=== PATIENT | female | born 1965 | race Caucasian/White ===

== ENCOUNTER 2024-02-05 19:40 | Inpatient (IN) | payer MEDICARE, BC, SELFPAY ==
[2024-02-05] VITALS (9 sets, daily range): BP systolic 102–176; BP diastolic 45–76; PULSE 90–128; RESP 9–20; TEMP 37.2; O2SAT 95–100
--- NOTE | ~2024-02-05 | CT_ITS ---
CT brain wo con Ordering provider: Jeet Webber MD History: 58 years Female with . Anoxic Brain Injury . Comparison: February 05, 2024 Technique: CT of the head without contrast. Radiation reduction technique utilized. DLP is 281.66 mGy. FINDINGS: BRAIN PARENCHYMA AND CSF SPACES: No midline shift, mass effect or hemorrhage. The brain parenchyma a nd CSF spaces are otherwise normal. Empty sella turcica. VISUALIZED PARANASAL SINUSES: Well aerated. MASTOIDS: Well aerated. BONES: The bones appear intact. SOFT TISSUES: Visualized nasopharynx is normal. Superficial soft tissues are normal. IMPRESSION: No acute intracranial findings. Reviewed, dictated and finalized at location A.
--- NOTE | ~2024-02-05 | XR_ITS ---
EXAMINATION: XR chest 1V portable DATE: 02/06/2024 07:51 INDICATION: Cardiac arrest. TECHNIQUE: A single frontal view of the chest was obtained. COMPARISON: Chest single view 02/05/2024, chest CT 02/05/2024 FINDINGS: There are patchy airspace opacities involving all lung zones with a lower lung predominance . No pleural effusion or pneumothorax. Cardiomegaly is noted. The endotracheal tube tip is 3.1 cm abo ve the nik. There are changes of posterior fusion procedure in cervical thoracic spine. A right in ternal jugular central venous catheter is seen with tip at the superior cavoatrial junction. IMPRESSION: 1. Diffuse lung disease with worsening at left lung base, consistent with pneumonia. 2. Cardiomegaly. Reviewed, dictated and finalized at location E. IMPRESSION: 1. Diffuse lung disease with worsening at left lung base, consistent with pneum onia. 2. Cardiomegaly.
--- NOTE | ~2024-02-05 | XR_ITS ---
EXAMINATION: XR chest ET placement Exam Date/Time: 02/05/2024 19:45 CDT HISTORY: et placement Comparison: None. RESULT: Lines, tubes, and devices: Endotracheal tube terminating 3.2 cm above the nik. Narrow caliber rig ht-sided IJ vascular catheter, somewhat lateral entry site, terminating in the right atrium. Surgical clips over the lower neck. Cervical fusion hardware. Lungs and pleura: Moderate diffuse reticular opacities. Patchy groundglass and streaky pulmonary opa cities most prominent in the lung bases. Mild bilateral costophrenic angle blunting. Cardiomediastinal silhouette: Unremarkable. Other: No acute osseous or upper abdominal finding. IMPRESSION: Endotracheal tube terminates 3.2 cm above the nik. Narrowed caliber right-sided vascular catheter, terminating over the right atrium. Moderate pulmonary edema and bibasilar atelectasis. Possible small bilateral pleural effusions. Infec tion is not excluded. Reviewed, dictated and finalized at location K. IMPRESSION: Endotracheal tube terminates 3.2 cm above the nik. Narrowed caliber right-sided vascular catheter, terminating over the right atri um. Moderate pulmonary edema and bibasilar atelectasis. Possible small bilateral pl eural effusions. Infection is not excluded.
--- NOTE | ~2024-02-05 | CT_ITS ---
EXAMINATION: CT chest abdomen pelvis wo con DATE: 02/05/2024 21:33 INDICATION: food bolus? s/p OHCA with ROSC . TECHNIQUE: Computed tomography (CT) of the chest, abdomen, and pelvis was performed with 100 mL Omnip aque-350 intravenous contrast. Automated exposure control and iterative reconstruction technique were employed. The dose-length product was 1519.13 mGy-cm. COMPARISON: X-ray chest, same date. FINDINGS: Examination limited by lack of contrast and arm down positioning. CHEST: Thoracic aorta: No significant dilation. No dissection. Lung parenchyma and airways: Septal thickening. Volume loss and segmental consolidation in the left l ower lobe. Patchy perihilar and scattered acinar opacities. Airway debris in left lower lobe bronchi. Thoracic inlet, axillae and chest wall: No thyroid or soft tissue mass. No axillary lymphadenopathy. Right IJ/subclavian central line, terminating at the cavoatrial junction. Endotracheal tube, 1.6 cm a lakhwinder the nik. Focal radiopacities project over the upper esophagus. Mediastinum: Enlarged mediastinal and hilar lymph nodes. Heart and pericardium: Mild cardiomegaly. No pericardial effusion. Coronary artery calcifications: Moderate. Pleura: No pleural effusion. Dependent right pleural calcification. Thoracic bones: No acute osseous finding in the chest. Partially visualized cervical fusion hardware. ABDOMEN/PELVIS: Liver: Normal. Biliary/Gallbladder: Gallbladder is mildly distended. Pericholecystic fluid. No stones detected. No b ile duct dilation. Pancreas: No mass or duct dilation. Spleen: Normal. Adrenals:No mass. Kidneys: Bilateral renal atrophy. No suspicious mass, obstructing stone, or hydronephrosis. GI tract: Small hiatal hernia. G-tube, in good position No small or large bowel dilation. Normal appe ndix. Mesentery/Peritoneum: No mass or free air. Small volume ascites. Retroperitoneum: No mass Atherosclerotic abdominal aortic and/or arterial calcifications. Pelvis: The urinary bladder is decompressed by Stack catheter. Absent uterus. Ovaries not confidently identified. Soft Tissues: Moderate diffuse body wall edema Abdominopelvic bones: No acute osseous finding in the abdomen/pelvis. IMPRESSION: Endotracheal tube terminates 1.6 cm above the nik, consider slight retraction. Right IJ/subclavian central line, in good position. Focal radiopacities, no larger than 7 mm, projecting over the upper thoracic esophagus, may represent swallowed foreign bodies. Aspiration pneumonitis, possible left lower lobe aspiration pneumonia, overlying changes of mild inte rstitial edema. Mild gallbladder hydrops with pericholecystic fluid, may be secondary to fasting and associated mild ascites, or obstruction and gallbladder inflammation, correlate with biliary labs. Moderate body wall edema. Reviewed, dictated and finalized at location K. IMPRESSION: Endotracheal tube terminates 1.6 cm above the nik, consider slight retractio n. Right IJ/subclavian central line, in good position. Focal radiopacities, no larger than 7 mm, projecting over the upper thoracic es ophagus, may represent swallowed foreign bodies. Aspiration pneumonitis, possible left lower lobe aspiration pneumonia, overlyin g changes of mild interstitial edema. Mild gallbladder hydrops with pericholecystic fluid, may be secondary to fastin g and associated mild ascites, or obstruction and gallbladder inflammation, cor relate with biliary labs. Moderate body wall edema.
--- NOTE | ~2024-02-05 | XR_ITS ---
Portable chest x-ray Comparison: 02/06/2024 Clinical History: Respiratory failure Findings: Endotracheal tube and right-sided central venous line remain in place. There is extensive hazy pulmonary disease. Cardiomediastinal silhouette is stable. Stable cervicothoracic spinal fixati on hardware. Impression: Extensive hazy pulmonary disease, suggestive moderate pulmonary edema. Correlate clinically for infec tion. Stable support tubes. Reviewed, dictated and finalized at [facility]. Impression: Extensive hazy pulmonary disease, suggestive moderate pulmonary edema. Correlat e clinically for infection. Stable support tubes.
--- NOTE | ~2024-02-05 | XR_ITS ---
Portable chest x-ray Comparison: 02/07/2024 Clinical History: Respiratory failure Findings: Endotracheal tube and right-sided central venous line are in satisfactory use. Extensive b ibasilar and perihilar airspace consolidation present. Probable minimal pleural effusions. Cardiomed iastinal silhouette is stable. Bones and soft tissues are unremarkable. Impression: Extensive bibasilar and perihilar airspace consolidation with minimal pleural effusions. Correlate fo r pulmonary edema versus pneumonia. Support tubes, as above. Reviewed, dictated and finalized at location . Impression: Extensive bibasilar and perihilar airspace consolidation with minimal pleural e ffusions. Correlate for pulmonary edema versus pneumonia. Support tubes, as above.
--- NOTE | ~2024-02-05 | XR_ITS ---
Portable chest x-ray Comparison: 02/08/2024 Clinical History: Respiratory failure Findings: Endotracheal tube and right-sided central venous line are in place. Small bilateral pleura l effusions are present. There is extensive bibasilar/perihilar airspace disease. Cardiomediastinal silhouette is stable. Stable cervicothoracic spinal fixation hardware. Impression: Moderate pulmonary edema pattern versus bilateral pneumonia. Correlate clinically. Support tubes, as above. Small pleural effusions. Reviewed, dictated and finalized at location . Impression: Moderate pulmonary edema pattern versus bilateral pneumonia. Correlate clinical ly. Support tubes, as above. Small pleural effusions.
--- NOTE | ~2024-02-05 | XR_ITS ---
Portable chest x-ray Comparison: 02/09/2024 Clinical History: Respiratory failure Findings: Endotracheal tube and right-sided central venous line remain in place. There is left lower lobe consolidation with a more hazy airspace disease at the right lung base and left perihilar regio n. Stable minimal pleural effusions. Cardiomediastinal silhouette is stable. Bones and soft tissues are unremarkable. Impression: Bibasilar and perihilar airspace disease persists, with most confluent consolidation at the left lowe r lobe. Correlate for pulmonary edema/atelectasis versus pneumonia. Minimal pleural effusions. Support tubes, as above. Reviewed, dictated and finalized at location . Impression: Bibasilar and perihilar airspace disease persists, with most confluent consolid ation at the left lower lobe. Correlate for pulmonary edema/atelectasis versus pneumonia. Minimal pleural effusions. Support tubes, as above.
--- NOTE | ~2024-02-05 | CT_ITS ---
EXAMINATION: CT brain wo con DATE: 02/05/2024 21:31 INDICATION: s/p cardiac arrest . TECHNIQUE: Computed tomography (CT) of the head was performed without intravenous contrast. The mA wa s adjusted according to patient size. Iterative reconstruction technique was employed. The dose-lengt h product was 605.33 mGy-cm. COMPARISON: None. FINDINGS: No acute intracranial hemorrhage or extra-axial fluid collection. No hydrocephalus, mass, or herniation. No acute large vessel ischemic infarct. Focal hypodensity in the radha, with apparent extension into t he midbrain. Unremarkable dural venous sinus attenuation. No acute osseous abnormality. The aerated spaces are clear. Bilateral lens replacements. IMPRESSION: Focal pontine and midbrain hypodensities, most likely representing artifact from beam hardening altho ugh focal infarct could appear similarly. Consider MRI of the brain for further evaluation. Reviewed, dictated and finalized at location K. IMPRESSION: Focal pontine and midbrain hypodensities, most likely representing artifact fro m beam hardening although focal infarct could appear similarly. Consider MRI of the brain for further evaluation.
--- NOTE | 2024-02-05 19:44 | PC.NURSE ---
VORB for 40mg etomidate, 100mg rocuronium
--- NOTE | 2024-02-05 19:48 | PC.NURSE ---
Pt intubated with 7.5 ETT, 23cm at the lip.
--- NOTE | 2024-02-05 19:59 | ED.CPR ---
HPI - CPR General Chief Complaint: Cardiac Arrest/CPR Stated Complaint: cardiac arrest Time Seen by Provider: 02/05/24 19:50 History of Present Illness HPI narrative: Patient has history of ESRD on dialysis, currently in shelter for rehab s/p cervical surgery when family believes that she choked on something, had a food bolus, was unable to tolerate anything by mouth and was spitting up and choking constantly, when they asked the shelter to take her to the emergency room they refused, therefore family did decide to try to take her themselves to the emergency room. On the drive over, her son noticed that she had become unresponsive, he immediately pulled over, pulled her out of the car, her granddaughter who is a nurse immediately started chest compressions as the paramedics arrived and took over and initially patient was in asystole, then pea, and upon arrival to our ambulance [place] they had a pulse. Related Data Allergies Allergy/AdvReac Type Severity Reaction Status Date / Time ceftriaxone Allergy Unknown Verified 02/05/24 20:08 clindamycin Allergy Unknown Verified 02/05/24 20:08 Review of Systems Review of Systems: ROS unobtainable: Yes unobtainable due to medical condition and unobtainable due to mental status Exam Narrative: EXAMINATION OF ORGAN SYSTEMS/BODY AREAS: Constitutional: Vital signs per nursing GENERAL: occasionally will choke/gag on [place] HEAD: Normal with no signs of head trauma. EYES: conjunctiva normal ENT: No debris in airway LUNGS: course breath sounds bilaterally with bagging HEART: tachycardic ABD: soft, G-tube in place EXT: left humeral IO in place, left upper extremity AV fistula intact SKIN: no obvious signs of trauma NEURO: no purposeful movement Course Vital Signs Vital signs: Vital Signs Pulse Rate 128 H 02/05/24 19:37 Respiratory Rate 20 02/05/24 19:37 Blood Pressure 176/76 H 02/05/24 19:37 Pulse Oximetry 100 02/05/24 19:37 Temperature 99 F 02/05/24 20:39 Pulse Rate 96 02/05/24 22:00 Respiratory Rate 18 02/05/24 22:00 Blood Pressure 109/46 L 02/05/24 22:00 Pulse Oximetry 95 02/05/24 22:00 Oxygen Delivery Mechanical Ventilation 02/05/24 20:38 Fraction of Inspired Oxygen 65 02/05/24 20:05 Procedures Intubation Intubation #1: Intubation Date: 02/05/24 Intubation Time: 23:06 sedative: Etomidate Mg Given: 40 paralytic: Rocuronium Mg Given: 100 Laryngoscope: fiber optic video scope Assist Device Used: fiber optic device Tube Size (cm): 7.5 Method of Intubation: orotracheal Number of Attempts: 1 Tube Secured Depth (cm): 23 Tube Secured Location: lips Tube Placement Confirmation: visualized tube passing through cords, equal breath sounds bilaterally, no breath sounds over epigastrium and confirmation by capnometry Patient Tolerated Procedure: well and no complications MDM - Cardiac Arrest/CPR MDM Narrative Medical decision making narrative: patient presents after at of hospital cardiac arrest, family suspects that she had choking episode at shelter with possible food bolus, and due to the granddaughter working at a nearby tertiary hospital here, tried to transfer her there themselves, unfortunately she went into cardiac arrest 20 minutes away from the hospital and thankfully there was immediate bystander CPR by the granddaughter, EMS on arrival continued CPR and by the time they arrived here she had a pulse. Patient was intubated by myself, confirmed on chest x-ray, there was resistance and difficulty passing OG-tube which I suspect is from the food bolus, labs within acceptable limits other than elevated creatinine she is already a dialysis patient. She does already have a central line in place. A CT head, chest/abdomen/ pelvis obtained, does show possible esophageal foreign bodies, antibiotics started, case discussed with inte
--- NOTE | 2024-02-05 20:06 | ECG_ITS ---
Test Date: 2024-02-05 19:41:45 Measurements Intervals [place] Rate: 130 P: 87 WA: 190 QRS: 120 QRSD: 98 T: 68 QT: 381 QTc: 561 Interpretive Statements SINUS TACHYCARDIA INCOMPLETE RIGHT BUNDLE BRANCH BLOCK DELAYED PRECORDIAL R/S TRANSITION ST-T WAVE ABNORMALITY IN INFERIOR LEADS- CONSIDER ISCHEMIA BASELINE WANDER- V4-V6 ABNORMAL ECG No previous ECG available for comparison Electronically Signed On 02-06-2024 07:42:33 CDT by Kurt Barraza D.O.
[2024-02-05] MEDS: FENTANYL 2,500MCG/NS250ML(*CRX 2,500 MCG/250 ML BAG IV CONT (20:12)
[2024-02-05 20:21] LABS: Basophils Absolute Auto 0.1 K/mm3 (0.0-0.1); Basophils Percent Auto 0.4 % (0.2-1.2); Eosinophils Percent Auto 0.2 % (0-4.4); Hematocrit 36.7 % (37.0-47.0); Immature Granulocyte Absolute 0.31 K/mm3 (0.00-0.031); Immature Granulocyte Percent A 1.8 % (0-0.5); Lymphocytes Absolute Auto 2.74 K/mm3 (0.9-3.2); Mean Corpuscular Hemoglobin 30.8 pg (26-34); Mean Corpuscular Volume 102.8 fl (80-100); Mean Platelet Volume 12.2 fl (7.4-10.4); Monocytes Percent Auto 6.1 % (2.6-8.5); Neutrophils Absolute Auto 12.9 K/mm3 (1.3-6.7); Neutrophils Percent Auto 75.5 % (45.5-73.1); Nucleated Red Blood Cells Perc 0.1 % (0.0-0.2); Platelet Count Result 109 k/mm3 (150-375); Red Blood Count 3.57 M/mm3 (4.2-5.4); Red Cell Distribution Width 16.5 % (11.5-14.5); White Blood Count 17.1 K/mm3 (4.5-10.0)
[2024-02-05 20:32] LABS: INR 1.2; Prothrombin Time 16.2 Seconds (11.1-14.7)
[2024-02-05 20:33] LABS: Alanine Aminotransferase 16 U/L (6-35); Albumin Level 3.3 g/dL (3.5-5.1); Alkaline Phosphatase 260 U/L (38-126); Anion Gap 13 mmol/L (4-12); Aspartate Amino Transferase 44 U/L (14-36); Bilirubin,Total 1.3 mg/dL (0.2-1.3); Blood Urea Nitrogen 19 mg/dL (7-17); Calcium 10.2 mg/dL (8.4-10.2); Carbon Dioxide 25 mmol/L (22-30); Chloride 95 mmol/L (98-107); Estimated Glomerular Filt Rate 17; Glucose 116 mg/dL (65-110); Partial Thromboplastin Time 38.8 Seconds (22.3-36.8); Potassium 3.5 mmol/L (3.4-5.0); Sodium 133 mmol/L (137-145)
[2024-02-05 20:35] LABS: Lactic Acid Reflex 7.3 mmol/L (0.7-2.0)
[2024-02-05 20:44] LABS: Troponin I 0.021 ng/mL (0.000-0.034)
[2024-02-05 20:47] LABS: Alveolar/Arterial O2 Gradient 319.2 mmHg; Base Excess ABG -3.6 mEq/l (+/-2.0); Fractional Inspired Oxygen 65 %; HCO3 ABG 25.2 mEq/l (22.0-26.0); Oxygen Content ABG 15.3 %vol (16.0-22.0); Oxygen Saturation ABG 91.5 % (95.0-100.0); Oxyhemoglobin 90.5 % THb (90.0-100.0); PO2 ABG 74.5 mmHg (80.0-100.0); PO2 FiO2 Ratio Arterial Blood 1.15 %
[2024-02-05 20:49] LABS: PCO2 ABG 64.1 mmHg (35.0-45.0); pH ABG 7.212 (7.350-7.450)
[2024-02-05 20:50] LABS: Arterial Blood Gas PEEP 5 cmH2O; Arterial Blood Gas Tidal Volume 350 ml; Arterial Blood Gas Vent Mode CMV; Arterial Blood Gas Ventilator rate 15 /MIN; Device VENTILATOR; Modified Allen's Test Pass; Site Drawn RIGHT BRACHIAL
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
[2024-02-05 22:59] LABS: Magnesium 2.4 mg/dL (1.6-2.3)
[2024-02-05 23:11] LABS: Creatine Kinase 49 U/L (30-135)
[2024-02-05 23:19] LABS: Reflex Lactic Acid Yes or No Add Lactic
[2024-02-05 23:25] LABS: Lactic Acid Reflex 2.5 mmol/L (0.7-2.0)
--- NOTE | 2024-02-05 23:45 | PC.NURSE ---
This patient, CELINA WEAVER, was admitted to Intensive Care Unit-6. Patient/family oriented to hospital policies and general routines including ID bracelet, bed and alarms, visiting hours, pain management, procedures, bathroom and other care routines, personal items, smoking policy, room service/diet, and visiting hours. Information on how to activate the Rapid Response Team has been discussed. Patient/Family are encouraged to report perceived risks to care and to ask questions if they do not understand what they are told or what they should do.
[2024-02-06] VITALS (63 sets, daily range): BP systolic 83–160; BP diastolic 44–98; PULSE 46–91; RESP 20–29; TEMP 32.2–36.8; O2SAT 97–100; BMI 35.9
[2024-02-06] MEDS: CEFEPIME 1 GM/NS 50 ML 1 GM/50 ML BAG IVPB (00:40)
--- NOTE | 2024-02-06 00:51 | ECG_ITS ---
Test Date: 2024-02-06 00:51:23 Measurements Intervals [place] Rate: 84 P: 43 IN: 179 QRS: 59 QRSD: 92 T: 89 QT: 394 QTc: 467 Interpretive Statements SINUS RHYTHM INCOMPLETE RIGHT BUNDLE BRANCH BLOCK BORDERLINE ST-T WAVE ABNORMALITY- DIFFUSE LEADS BORDERLINE ECG COMPARED WITH PRIOR ECG 02/05/2024 19:41 HEART RATE HAS DECREASED ST-T WAVE ABNORMALITY IMPROVED Electronically Signed On 02-06-2024 07:46:15 CDT by Kurt Barraza D.O.
[2024-02-06 00:58] LABS: Glucose Point of Care 100 mg/dl (65-105)
[2024-02-06] MEDS: MINERAL OIL/WHITE PETROLATUM OINTMENT 1 APPLIC EACH EYE ×3 (01:11→20:19)
[2024-02-06] MEDS: AZITHROMYCIN 500 MG/NS 250 ML 500 MG/250 ML BAG 250 MG IVPB (01:11)
[2024-02-06] MEDS: MIDAZOLAM 100MG/NS 100ML(*CRX) 100 MG/100 ML BAG IV CONT (01:12)
[2024-02-06] MEDS: metroNIDAZOLE 500 MG/ISO 100ML 500 MG/100 ML BAG 100 MG IVPB ×3 (01:13→17:06)
[2024-02-06 01:37] LABS: Alveolar/Arterial O2 Gradient 198.2 mmHg; Base Excess ABG 1.9 mEq/l (+/-2.0); Fractional Inspired Oxygen 65 %; HCO3 ABG 28.7 mEq/l (22.0-26.0); Methemoglobin ABG 0.4 %THb (0-1.5); Oxygen Content ABG 16.9 %vol (16.0-22.0); Oxygen Saturation ABG 99.3 % (95.0-100.0); Oxyhemoglobin 98.1 % THb (90.0-100.0); PCO2 ABG 55.1 mmHg (35.0-45.0); PO2 ABG 205.3 mmHg (80.0-100.0); PO2 FiO2 Ratio Arterial Blood 3.16 %; Reduced Hemoglobin 0.5 %THb (0-5.0); Total Hemoglobin 11.9 g/dL (12.0-18.0); pH ABG 7.335 (7.350-7.450)
[2024-02-06 01:38] LABS: Device VENTILATOR; Modified Allen's Test Pass; Site Drawn RIGHT BRACHIAL
[2024-02-06 01:40] LABS: Lactic Acid 1.7 mmol/L (0.7-2.0)
[2024-02-06 01:40] LABS: Arterial Blood Gas PEEP 5 cmH2O; Arterial Blood Gas Vent Mode CMV; Arterial Blood Gas Ventilator rate 20 /MIN
[2024-02-06 01:41] LABS: Arterial Blood Gas Tidal Volume 400 ml
[2024-02-06] MEDS: ROCURONIUM BROMIDE 50 MG/5 ML VIAL 60 MG IV PUSH (02:14)
[2024-02-06 02:21] LABS: MRSA (PCR) NOT DETECTED (NOT DETECTE)
[2024-02-06 02:32] LABS: Glucose Point of Care 101 mg/dl (65-105)
[2024-02-06] MEDS: VANCOMYCIN 1,750 MG/NS 500 ML 1,750 MG/500 ML BAG 250 MG IVPB (02:41)
[2024-02-06 03:33] LABS: Glucose Point of Care 101 mg/dl (65-105)
[2024-02-06] MEDS: CISATRACURIUM BESYLATE 20 MG/10 ML VIAL 13.8 MG IV PUSH (03:35)
[2024-02-06] MEDS: CISATRACURIUM BESYLATE 200 MG in DEXTROSE 5% 80 ML 8.28 ML IV CONT (03:35)
[2024-02-06 04:30] LABS: Glucose Point of Care 110 mg/dl (65-105)
[2024-02-06 05:18] LABS: Glucose Point of Care 123 mg/dl (65-105)
[2024-02-06 05:18] LABS: Alveolar/Arterial O2 Gradient 203.9 mmHg; Carboxyhemoglobin 0.9 % THb (0-2.0); Fractional Inspired Oxygen 50 %; HCO3 ABG 26.6 mEq/l (22.0-26.0); Methemoglobin ABG 0.3 %THb (0-1.5); Oxygen Content ABG 16.1 %vol (16.0-22.0); Oxygen Saturation ABG 97.9 % (95.0-100.0); Oxyhemoglobin 97.2 % THb (90.0-100.0); PCO2 ABG 41.9 mmHg (35.0-45.0); PO2 ABG 105.5 mmHg (80.0-100.0); PO2 FiO2 Ratio Arterial Blood 2.11 %; Reduced Hemoglobin 1.6 %THb (0-5.0); Total Hemoglobin 11.7 g/dL (12.0-18.0); pH ABG 7.421 (7.350-7.450)
[2024-02-06 05:19] LABS: Device VENTILATOR; Modified Allen's Test Pass; Site Drawn RIGHT BRACHIAL
[2024-02-06 05:20] LABS: Arterial Blood Gas PEEP 5 cmH2O; Arterial Blood Gas Tidal Volume 350 ml; Arterial Blood Gas Vent Mode CMV; Arterial Blood Gas Ventilator rate 24 /MIN
--- NOTE | 2024-02-06 06:00 | ECG_ITS ---
Test Date: 2024-02-06 13:57:26 Measurements Intervals [place] Rate: 56 P: 50 [place]: 188 QRS: 56 QRSD: 97 T: 70 QT: 436 QTc: 422 Interpretive Statements SINUS BRADYCARDIA INCOMPLETE RIGHT BUNDLE BRANCH BLOCK NONSPECIFIC T-WAVE ABNORMALITY- ANT/HIGH LAT LEADS BASELINE ARTIFACT- I, II, III BORDERLINE ECG Compared to ECG 02/06/2024 07:26:49 NO SIGNIFICANT CHANGE Electronically Signed On 02-06-2024 15:02:41 CDT by Kurt Barraza D.O.
[2024-02-06] MEDS: CENTRAL LINE FLUSH 10 ML IV PUSH ×3 (06:09→22:07)
[2024-02-06] MEDS: LEVOTHYROXINE SODIUM 112 MCG TABLET FEED TUBE (06:09)
[2024-02-06 06:10] LABS: Hematocrit 33.3 % (37.0-47.0); Hemoglobin 10.5 g/dL (12.0-15.0); Mean Corpuscular HGB Conc 31.5 g/dl (32-36); Mean Corpuscular Volume 98.2 fl (80-100); Mean Platelet Volume 10.1 fl (7.4-10.4); Platelet Count Result 103 k/mm3 (150-375); Red Blood Count 3.39 M/mm3 (4.2-5.4); Red Cell Distribution Width 16.5 % (11.5-14.5)
[2024-02-06 06:18] LABS: Creatine Kinase 113 U/L (30-135)
[2024-02-06 06:19] LABS: Lactic Acid Reflex 1.6 mmol/L (0.7-2.0)
[2024-02-06 06:23] LABS: INR 1.3; Prothrombin Time 16.6 Seconds (11.1-14.7)
[2024-02-06 06:30] LABS: Anion Gap 13 mmol/L (4-12); Blood Urea Nitrogen 22 mg/dL (7-17); Calcium 9.4 mg/dL (8.4-10.2); Carbon Dioxide 26 mmol/L (22-30); Chloride 96 mmol/L (98-107); Estimated CRCL calculation 21 ml/min; Estimated Glomerular Filt Rate 17; Glucose 115 mg/dL (65-110); Potassium 2.9 mmol/L (3.4-5.0); Sodium 135 mmol/L (137-145)
[2024-02-06 07:42] LABS: Glucose Point of Care 114 mg/dl (65-105)
--- NOTE | 2024-02-06 08:12 | WPDCNINT ---
Assessment and Plan Assessment and plan (1) Cardiac arrest: Code(s): I46.9 - Cardiac arrest, cause unspecified Status: Acute Assessment and Plan: Patient presented with cardiac arrest with successful ROSC with 1 round of epinephrine, 1 amp of bicarb and calcium gluconate with CPR. Most likely cause of cardiac arrest was respiratory event/hypoxia/aspiration. -troponins increased but have plateaued, 0.021, 1.390, 2.620, 2.570. -cardiology has been consulted -patient is not have any known cardiac history except for recent endocarditis -no cardiac arrhythmias overnight -will replace potassium -patient is on it temperature management, was cooled at 3:40 a.m. on 02/06/2024 -echocardiogram to be done when patient is we warmed -added Keppra as patient was having some myoclonic jerks per hospitalist CT brain on admission : Focal pontine and midbrain hypodensities, most likely representing artifact from beam hardening although focal infarct could appear similarly. Consider MRI of the brain for further evaluation. CT chest abdomen and pelvis: Endotracheal tube terminates 1.6 cm above the nik, consider slight retraction. Right IJ/subclavian central line, in good position.Focal radiopacities, no larger than 7 mm, projecting over the upper thoracic esophagus, may represent swallowed foreign bodies. Aspiration pneumonitis, possible left lower lobe aspiration pneumonia, overlying changes of mild interstitial edema.Mild gallbladder hydrops with pericholecystic fluid, may be secondary to fasting and associated mild ascites, or obstruction and gallbladder inflammation, correlate with biliary labs. Moderate body wall edema. (2) Acute respiratory failure with hypoxia and hypercapnia: Code(s): J96.01 - Acute respiratory failure with hypoxia; J96.02 - Acute respiratory failure with hypercapnia Status: Acute Assessment and Plan: Acute respiratory failure likely related to cardiac arrest, stabilization of the airway. Most likely it was a respiratory event with aspiration, hypoxia -currently on CMV mode of ventilation, peep of 5, 50% FiO2 -chest x-ray and ABGs reviewed, ventilator rate adjusted -chest x-ray and CT chest showing pneumonia likely related to aspiration -continue cefepime, metronidazole and vancomycin (02/05) -02/04: Blood cultures obtained and pending -02/05: Sputum cultures obtained and pending (3) Esophageal obstruction due to food impaction: Code(s): T18.128A - Food in esophagus causing other injury, initial encounter; W44.F3XA - Food entering into or through a natural orifice, initial encounter Status: Acute Assessment and Plan: OG tube was attempted but unsuccessful as it was met with resistance, once it was pulled out there was food particles at the end of the tube -patient has had a recent esophageal tear with surgical repair in [place] -GI has been consulted -CT scan on admission as above showed .Focal radiopacities, no larger than 7 mm, projecting over the upper thoracic esophagus, may represent swallowed foreign bodies. -will discuss with GI (4) End-stage renal disease on hemodialysis: Code(s): N18.6 - End stage renal disease; Z99.2 - Dependence on renal dialysis Status: Acute Assessment and Plan: End-stage renal disease, receives dialysis on Mondays, Wednesdays, Fridays. -nephrology has been consulted -dialysis per Nephrology (5) Type 1 diabetes mellitus: Qualifiers: Diabetes mellitus complication status: with kidney complications Diabetes mellitus complication detail: with chronic kidney disease Chronic kidney disease stage: on chronic dialysis Qualified Code(s): E10.22 - Type 1 diabetes mellitus with diabetic chronic kidney disease; N18.6 - End stage renal disease; Z99.2 - Dependence on renal dialysis Code(s): E10.9 - Type 1 diabetes mellitus without complications Status: Acute Assessment and Plan: Accu-Cheks and sliding scale
[2024-02-06] MEDS: PANTOPRAZOLE SODIUM IV 40 MG VIAL IV PUSH (08:16)
[2024-02-06] MEDS: levETIRAcetam 500MG/NACL 100ML 500 MG/100 ML BAG 400 MG IVPB ×2 (08:17→20:19)
[2024-02-06] MEDS: HEPARIN SODIUM 5,000 UNITS/ML VIAL 5000 UNITS SUB-Q ×2 (08:18→20:19)
[2024-02-06] MEDS: ALBUMIN HUMAN 25% 25 GM/100 ML 100 ML IVPB ×3 (08:36→18:15)
[2024-02-06] MEDS: KCL 40 MEQ/WATER 100 ML 100 ML 25 ML IVPB (08:41)
[2024-02-06 08:49] LABS: Glucose Point of Care 127 mg/dl (65-105)
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
[2024-02-06 09:15] LABS: Glucose Point of Care 135 mg/dl (65-105)
[2024-02-06 10:17] LABS: Glucose Point of Care 112 mg/dl (65-105)
[2024-02-06 10:24] LABS: Partial Thromboplastin Time 35.8 Seconds (22.3-36.8)
[2024-02-06 10:26] LABS: Lactic Acid Reflex 1.5 mmol/L (0.7-2.0)
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
[2024-02-06 11:06] LABS: Glucose Point of Care 126 mg/dl (65-105)
[2024-02-06 12:18] LABS: Creatine Kinase 83 U/L (30-135)
[2024-02-06 12:26] LABS: Glucose Point of Care 122 mg/dl (65-105)
[2024-02-06 13:05] LABS: Glucose Point of Care 127 mg/dl (65-105)
--- NOTE | 2024-02-06 14:00 | ECG_ITS ---
Test Date: 2024-02-06 07:26:49 Measurements Intervals [place] Rate: 52 P: 92 IN: 194 QRS: 40 QRSD: 109 T: 65 QT: 458 QTc: 429 Interpretive Statements SINUS BRADYCARDIA BORDERLINE AV CONDUCTION DELAY INCOMPLETE LEFT BUNDLE BRANCH BLOCK BORDERLINE ST-T WAVE ABNORMALITY- DIFFUSE LEADS BASELINE WANDER- I, II, III, AVR, AVF, V1 ABNORMAL ECG Compared to ECG 02/05/2024 19:41:45 HEART RATE HAS DECREASED INCOMPLETE LEFT BUNDLE BRANCH BLOCK NOW PRESENT Electronically Signed On 02-06-2024 07:41:21 CDT by Kurt Barraza D.O.
[2024-02-06] MEDS: NOREPINEPHRINE 8 MG/D5W 250 ML 8 MG/250 ML BAG 9.38 MG IV CONT (14:05)
[2024-02-06 14:16] LABS: Glucose Point of Care 137 mg/dl (65-105)
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
[2024-02-06 15:10] LABS: Glucose Point of Care 125 mg/dl (65-105)
--- NOTE | 2024-02-06 15:49 | WPDGICN ---
Assessment and Plan Assessment and plan (1) Esophageal obstruction due to food impaction: Code(s): T18.128A - Food in esophagus causing other injury, initial encounter; W44.F3XA - Food entering into or through a natural orifice, initial encounter Status: Acute Assessment and Plan: had esophageal rupture repaired after complication from surgery, then developed food bolus about 5 weeks ago probably another episode that triggered aspiration and cardiac arrest, unable to advance OGT will assess tomorrow with EGD if any food bolus once she is more stable from cardiac arrest G-tube still in place (2) Dysphagia: Qualifiers: Dysphagia type: unspecified Qualified Code(s): R13.10 - Dysphagia, unspecified Code(s): R13.10 - Dysphagia, unspecified Status: Acute Assessment and Plan: complication from cervical spine surgery and subsequent esophageal rupture with repair, family member was told that probably had also diverticulum (3) Cardiac arrest: Code(s): I46.9 - Cardiac arrest, cause unspecified Status: Acute Assessment and Plan: by cardiology and graining machine operator (4) End-stage renal disease on hemodialysis: Code(s): N18.6 - End stage renal disease; Z99.2 - Dependence on renal dialysis Status: Acute (5) Acute respiratory failure with hypoxia and hypercapnia: Code(s): J96.01 - Acute respiratory failure with hypoxia; J96.02 - Acute respiratory failure with hypercapnia Status: Acute Assessment and Plan: intubated (6) Aspiration pneumonitis: Code(s): J69.0 - Pneumonitis due to inhalation of food and vomit Status: Acute (7) Type 1 diabetes mellitus: Qualifiers: Diabetes mellitus complication status: with kidney complications Diabetes mellitus complication detail: with chronic kidney disease Chronic kidney disease stage: on chronic dialysis Qualified Code(s): E10.22 - Type 1 diabetes mellitus with diabetic chronic kidney disease; N18.6 - End stage renal disease; Z99.2 - Dependence on renal dialysis Code(s): E10.9 - Type 1 diabetes mellitus without complications Status: Acute GI Consult Note Consult date/time: 02/06/24 15:49 Reason for consult: food bolus HPI: CELINA WEAVER is a 58 year old female with complicated past medical history of diabetes type 1, end-stage renal disease on hemodialysis, diabetic nephropathy, diabetic neuropathy, diabetic retinopathy, hyperlipidemia, hypothyroidism, TIA. She had esophageal perforation in October 2023 after complication from cervical spine surgery that required surgical repair and also PEG tube placement. Then infection of the cervical spine hardware status post washout and debridement in December of 2023 which was complicated with endocarditis s/p antibiotics. Daughter is at bedside and providing some of history (patient is intubated)/. She says that after surgical complications and esophageal rupture repair about 5 weeks ago had episode of food bolus, eventually she was transferred to local half-way facility where she was slowly tolerating special diet and was not longer using tube feeding but 2 days ago family noted that patient was having had time to tolerate secretions and was nauseous after she has eaten, they signed the patient out of rehab facility in [facility] and decided to take her to [facility] in [place] but when they reached [facility] the patient went unresponsive in the car, son-in-law and daughter started CPR, EMS arrived and patient was in asystole. Received epinephrine, bicarb, calcium, did convert to PEA reliable to the hospital was found to have a pulse. Patient was intubated in the ER, NG tube placement was attempted but noted resistance, provider noted evidence of food debris at the end of OG tube and unable to advance. In the ER WBC count was 17.1, hemoglobin 11.0, platelets 109, sodium was 133, potassium 3.5, chloride 95, CO2 is 25, BUN 19
[2024-02-06 16:09] LABS: Glucose Point of Care 127 mg/dl (65-105)
[2024-02-06 16:37] LABS: Lactic Acid Reflex 1.7 mmol/L (0.7-2.0)
[2024-02-06 17:12] LABS: Glucose Point of Care 143 mg/dl (65-105)
[2024-02-06 18:25] LABS: Glucose Point of Care 130 mg/dl (65-105)
[2024-02-06 18:27] LABS: Creatine Kinase 83 U/L (30-135)
[2024-02-06 18:30] LABS: INR 1.5; Prothrombin Time 18.3 Seconds (11.1-14.7)
[2024-02-06 19:19] LABS: Glucose Point of Care 144 mg/dl (65-105)
[2024-02-06 20:14] LABS: Glucose Point of Care 149 mg/dl (65-105)
[2024-02-06 21:17] LABS: Glucose Point of Care 145 mg/dl (65-105)
[2024-02-06 22:20] LABS: Glucose Point of Care 150 mg/dl (65-105)
[2024-02-06 22:39] LABS: Partial Thromboplastin Time 37.2 Seconds (22.3-36.8)
[2024-02-06 23:20] LABS: Glucose Point of Care 145 mg/dl (65-105)
[2024-02-07] VITALS (63 sets, daily range): BP systolic 79–131; BP diastolic 36–99; PULSE 62–94; RESP 13–29; TEMP 32.3–37.3; O2SAT 97–100; BMI 35.9
--- NOTE | 2024-02-07 | ECHO_ITS ---
Patient Info Name: Allen Macdonald Age: 58 years : 1965 Gender: Female Ht: 63 in Wt: 208 lbs BSA: 2.09 m2 HR: 77 bpm BP: 104 / 53 mmHg Heart Rhythm: Sinus Rhythm Technical Quality: Fair Exam Date: 02/07/2024 4:41 PM Exam Location: Echo Lab Patient Status: Inpatient Admit Date: 02/05/2024 Staff Ordering Physician: Daria Herman DO Power Machine Operator: Mandy Kennedy RDCS Attending Provider: Daria Herman DO Referring Physician: Batsheva MORRISSEY; Exam Type: CA echo dop color flow w con Study Info Indications - cardiac arrest Complete two-dimensional, color flow and Doppler transthoracic echocardiogram is performed with contrast to opacify the left ventricle and to improve the deliniation of the left ventricle endocardial borders. Contrast/Agitated Saline Contrast/Ag. Saline: Definity Amount: 2.00 ml Administered By: Mandy Kennedy RDCS Existing IV Access: Yes IV Access Condition: patent with no signs of infiltration Summary 1. Left ventricular chamber dimension is normal. 2. Left ventricular systolic function is normal, estimated at 65-70%. 3. Left ventricular septal wall motion is abnormal with septal motion related to bundle branch block. 4. Right ventricular chamber dimension is mildly enlarged. 5. Right ventricular systolic function is normal. 6. Left atrial chamber dimension is mildly enlarged. 7. Right atrial chamber dimension is mildly enlarged. 8. There is moderate aortic valve calcification. 9. There is mild aortic valve regurgitation. 10. The mitral valve has thickened leaflets. 11. The mitral valve annulus is severely calcified. 12. There is mild mitral valve regurgitation. 13. There is mild tricuspid valve regurgitation. 14. There is mild pulmonic regurgitation. 15. Dilated inferior vena cava with no collapse upon inspiration consistent with elevated right atrial pressure, 15 mmHg. 16. Left pleural effusion present. Left Ventricle Left ventricular chamber dimension is normal. Left ventricular systolic function is normal, estimated at 65-70%. There is no increased left ventricular wall thickness. Left ventricular septal wall motion is abnormal with septal motion related to bundle branch block. Right Ventricle Right ventricular chamber dimension is mildly enlarged. Right ventricular systolic function is normal. Left Atria Left atrial chamber dimension is mildly enlarged. Right Atria Right atrial chamber dimension is mildly enlarged. Atrial Septum Intact interatrial septum visualized by color flow imaging. Aortic Valve The aortic valve is probable trileaflet. There is mild aortic valve regurgitation. There is moderate aortic valve calcification. Pulmonic Valve The pulmonic valve is not well visualized. There is mild pulmonic regurgitation. Mitral Valve The mitral valve has thickened leaflets. There is mild mitral valve regurgitation. The mitral valve annulus is severely calcified. Tricuspid Valve There is mild tricuspid valve regurgitation. Pericardium/Pleural Left pleural effusion present. There is no pericardial effusion. Inferior Vena Cava Dilated inferior vena cava with no collapse upon inspiration consistent with elevated right atrial pressure, 15 mmHg. Aorta The aortic root size at the sinus of Valsalva is normal. Left Ventricular Outflow Tract Name Value Normal
[2024-02-07 00:27] LABS: Glucose Point of Care 146 mg/dl (65-105)
[2024-02-07] MEDS: CEFEPIME 1 GM/NS 50 ML 1 GM/50 ML BAG IVPB (00:37)
[2024-02-07] MEDS: metroNIDAZOLE 500 MG/ISO 100ML 500 MG/100 ML BAG 100 MG IVPB ×3 (01:06→21:22)
[2024-02-07] MEDS: MIDAZOLAM 100MG/NS 100ML(*CRX) 100 MG/100 ML BAG IV CONT (01:10)
[2024-02-07] MEDS: FENTANYL 2,500MCG/NS250ML(*CRX 2,500 MCG/250 ML BAG IV CONT (01:18)
[2024-02-07 01:29] LABS: Glucose Point of Care 139 mg/dl (65-105)
[2024-02-07 02:13] LABS: Glucose Point of Care 149 mg/dl (65-105)
[2024-02-07 03:14] LABS: Glucose Point of Care 152 mg/dl (65-105)
[2024-02-07 03:18] LABS: Creatine Kinase 87 U/L (30-135)
[2024-02-07] MEDS: CENTRAL LINE FLUSH 10 ML IV PUSH ×2 (05:16→21:22)
[2024-02-07] MEDS: LEVOTHYROXINE SODIUM 112 MCG TABLET FEED TUBE (05:16)
[2024-02-07 05:18] LABS: Basophils Percent Auto 0.3 % (0.2-1.2); Eosinophils Percent Auto 0.1 % (0-4.4); Hematocrit 31.1 % (37.0-47.0); Hemoglobin 9.6 g/dL (12.0-15.0); Immature Granulocyte Absolute 0.07 K/mm3 (0.00-0.031); Immature Granulocyte Percent A 0.5 % (0-0.5); Immature Platelet Fraction Pct 9.1 % (0.9-11.2); Lymphocytes Absolute Auto 0.29 K/mm3 (0.9-3.2); Lymphocytes Percent Auto 1.9 % (18.3-44.2); Mean Corpuscular HGB Conc 30.9 g/dl (32-36); Mean Corpuscular Hemoglobin 30.9 pg (26-34); Monocytes Percent Auto 6.6 % (2.6-8.5); Neutrophils Absolute Auto 13.8 K/mm3 (1.3-6.7); Neutrophils Percent Auto 90.6 % (45.5-73.1); Platelet Count Result 95 k/mm3 (150-375); Red Blood Count 3.11 M/mm3 (4.2-5.4); Red Cell Distribution Width 16.7 % (11.5-14.5); White Blood Count 15.3 K/mm3 (4.5-10.0)
[2024-02-07 05:25] LABS: Glucose Point of Care 162 mg/dl (65-105)
[2024-02-07 05:25] LABS: Glucose Point of Care 161 mg/dl (65-105)
[2024-02-07 05:25] LABS: Glucose Point of Care 152 mg/dl (65-105)
[2024-02-07 05:25] LABS: Creatine Kinase 92 U/L (30-135)
[2024-02-07 05:26] LABS: Lactic Acid Reflex 1.6 mmol/L (0.7-2.0)
[2024-02-07 05:27] LABS: Alanine Aminotransferase 15 U/L (6-35); Albumin Level 3.7 g/dL (3.5-5.1); Alkaline Phosphatase 211 U/L (38-126); Anion Gap 19 mmol/L (4-12); Aspartate Amino Transferase 39 U/L (14-36); Bilirubin,Total 1.6 mg/dL (0.2-1.3); Blood Urea Nitrogen 24 mg/dL (7-17); Carbon Dioxide 22 mmol/L (22-30); Chloride 93 mmol/L (98-107); Estimated CRCL calculation 18 ml/min; Estimated Glomerular Filt Rate 14; Glucose 159 mg/dL (65-110); Partial Thromboplastin Time 38.3 Seconds (22.3-36.8); Phosphorus 3.4 mg/dL (2.5-4.5); Potassium 3.3 mmol/L (3.4-5.0); Sodium 134 mmol/L (137-145)
[2024-02-07 05:51] LABS: Anisocytosis 1+; Hypochromasia 1+; Large Platelets Present; Platelet Estimate Decreased (Adequate)
[2024-02-07 05:52] LABS: Burr Cells 1+; Macrocytosis 1+ (NORMAL); Schistocytes None Seen
[2024-02-07 05:58] LABS: Vancomycin Random 15.2 ug/mL (10-20)
[2024-02-07 06:13] LABS: Hepatitis B Surface Antigen Negative (Negative)
[2024-02-07 06:16] LABS: Alveolar/Arterial O2 Gradient 97.4 mmHg; Base Excess ABG -1.7 mEq/l (+/-2.0); Carboxyhemoglobin 0.9 % THb (0-2.0); Fractional Inspired Oxygen 30 %; HCO3 ABG 24.7 mEq/l (22.0-26.0); Methemoglobin ABG 0.3 %THb (0-1.5); Oxygen Content ABG 13.3 %vol (16.0-22.0); Oxygen Saturation ABG 88.1 % (95.0-100.0); PCO2 ABG 49.2 mmHg (35.0-45.0); PO2 ABG 58.7 mmHg (80.0-100.0); PO2 FiO2 Ratio Arterial Blood 1.96 %; Reduced Hemoglobin 11.2 %THb (0-5.0); Total Hemoglobin 10.8 g/dL (12.0-18.0); pH ABG 7.319 (7.350-7.450)
[2024-02-07 06:19] LABS: Device VENTILATOR; Modified Allen's Test Pass; Oxyhemoglobin 87.6 % THb (90.0-100.0); Site Drawn RIGHT BRACHIAL
[2024-02-07 06:20] LABS: Arterial Blood Gas PEEP 5 cmH2O; Arterial Blood Gas Tidal Volume 350 ml; Arterial Blood Gas Vent Mode CMV; Arterial Blood Gas Ventilator rate 22 /MIN
[2024-02-07 06:29] LABS: Hepatitis B Surface Anti Res Negative
[2024-02-07 06:33] LABS: Glucose Point of Care 185 mg/dl (65-105)
[2024-02-07 07:22] LABS: Glucose Point of Care 145 mg/dl (65-105)
[2024-02-07] MEDS: POTASSIUM CHLORIDE 20 MEQ PACKET (FOR LIQUID) 40 MEQ FEED TUBE (07:58)
[2024-02-07] MEDS: levETIRAcetam 500MG/NACL 100ML 500 MG/100 ML BAG 400 MG IVPB (08:00)
[2024-02-07] MEDS: PANTOPRAZOLE SODIUM IV 40 MG VIAL IV PUSH (08:00)
--- NOTE | 2024-02-07 08:00 | WPDINTPN ---
Progress Note: A&P Assessment and Plan (1) Cardiac arrest: Code(s): I46.9 - Cardiac arrest, cause unspecified Status: Acute Assessment and Plan: Patient presented with cardiac arrest with successful ROSC with 1 round of epinephrine, 1 amp of bicarb and calcium gluconate with CPR. Most likely cause of cardiac arrest was respiratory event/hypoxia/aspiration. -troponins increased but have plateaued, 0.021, 1.390, 2.620, 2.570. -cardiology has been consulted -patient is not have any known cardiac history except for recent endocarditis -no cardiac arrhythmias overnight -patient status post target temperature management, was rewarmed and reached her normal body temperature this morning -echocardiogram has been ordered, will be done today -continue Keppra as patient was having some myoclonic jerks -replace potassium CT brain on admission : Focal pontine and midbrain hypodensities, most likely representing artifact from beam hardening although focal infarct could appear similarly. Consider MRI of the brain for further evaluation. CT chest abdomen and pelvis: Endotracheal tube terminates 1.6 cm above the nik, consider slight retraction. Right IJ/subclavian central line, in good position.Focal radiopacities, no larger than 7 mm, projecting over the upper thoracic esophagus, may represent swallowed foreign bodies. Aspiration pneumonitis, possible left lower lobe aspiration pneumonia, overlying changes of mild interstitial edema.Mild gallbladder hydrops with pericholecystic fluid, may be secondary to fasting and associated mild ascites, or obstruction and gallbladder inflammation, correlate with biliary labs. Moderate body wall edema. (2) Acute respiratory failure with hypoxia and hypercapnia: Code(s): J96.01 - Acute respiratory failure with hypoxia; J96.02 - Acute respiratory failure with hypercapnia Status: Acute Assessment and Plan: Acute respiratory failure likely related to cardiac arrest, stabilization of the airway. Most likely it was a respiratory event with aspiration, hypoxia -currently on CMV mode of ventilation, peep of 5, 30% FiO2 -chest x-ray and ABGs reviewed, ventilator rate adjusted -chest x-ray and CT chest showing pneumonia likely related to aspiration -continue cefepime, metronidazole and vancomycin (02/05) -02/04: Blood cultures -preliminary results are negative x2 -02/05: Sputum cultures obtained and pending -sedated with fentanyl and Versed infusion, have asked the bedside RN to start weaning the sedation to evaluate her mental status (3) Esophageal obstruction due to food impaction: Code(s): T18.128A - Food in esophagus causing other injury, initial encounter; W44.F3XA - Food entering into or through a natural orifice, initial encounter Status: Acute Assessment and Plan: OG tube was attempted but unsuccessful as it was met with resistance, once it was pulled out there was food particles at the end of the tube -patient has had a recent esophageal tear with surgical repair in [place] -GI has been consulted -CT scan on admission as above showed .Focal radiopacities, no larger than 7 mm, projecting over the upper thoracic esophagus, may represent swallowed foreign bodies. -appreciate GI evaluation and recommendation, EGD today (4) End-stage renal disease on hemodialysis: Code(s): N18.6 - End stage renal disease; Z99.2 - Dependence on renal dialysis Status: Acute Assessment and Plan: End-stage renal disease, receives dialysis on Mondays, Wednesdays, Fridays. -nephrology has been consulted -dialysis per Nephrology (5) Type 1 diabetes mellitus: Qualifiers: Chronic kidney disease stage: on chronic dialysis Diabetes mellitus complication detail: with chronic kidney disease Diabetes mellitus complication status: with kidney complications Qualified Code(s): E10.22 - Type 1 diabetes mellitus with diabetic chronic kidney disease; N18.6 - End stage
[2024-02-07] MEDS: MINERAL OIL/WHITE PETROLATUM OINTMENT 1 APPLIC EACH EYE ×2 (08:05→20:22)
[2024-02-07 08:20] LABS: Glucose Point of Care 141 mg/dl (65-105)
[2024-02-07] MEDS: ALBUMIN HUMAN 25% 12.5 GM/50ML 50 ML IVPB ×3 (09:21→14:25)
--- NOTE | 2024-02-07 09:54 | PM.PNNEP ---
Progress Note: A&P Assessment and Plan (1) End stage renal disease: Code(s): N18.6 - End stage renal disease Status: Acute Assessment and Plan: HD today continue M/W/F dialysis schedule for now follow electrolytes, volume status, and clearance has been on dialysis since 2017 (2) Cardiac arrest: Code(s): I46.9 - Cardiac arrest, cause unspecified Status: Acute Assessment and Plan: presumed etiology was respiratory event/hypoxia/aspiration s/p ROSC with ACLS protocol (1 round of epinephrine, 1amp of bicarbonate, 1 amp calcium gluconate along with CPR) Cardiolgy following s/p TTM follow telemetry; follow-up on Echo trend of troponins noted (3) Acute respiratory failure with hypoxia and hypercapnia: Code(s): J96.01 - Acute respiratory failure with hypoxia; J96.02 - Acute respiratory failure with hypercapnia Status: Acute Assessment and Plan: multifactorial etiology: cardiac arrest aspiration hypoxia intubated and on ventilator support CT of chest and CXR with suspected aspiration pneumonia and mild edema weaning sedation as tolerated (4) Aspiration pneumonia: Code(s): J69.0 - Pneumonitis due to inhalation of food and vomit Status: Acute Assessment and Plan: as suggested by imaging to date blood/sputum culture pending on antibiotic therapy continue ventilator support (5) Anemia: Code(s): D64.9 - Anemia, unspecified Status: Chronic Assessment and Plan: related to ESRD along with acute illness Epogen with HD follow trend of H/H (6) Esophageal obstruction due to food impaction: Code(s): T18.128A - Food in esophagus causing other injury, initial encounter; W44.F3XA - Food entering into or through a natural orifice, initial encounter Status: Acute Assessment and Plan: OG tube was attempted but unsuccessful as it was met with resistance once it was pulled out there was food particles at the end of the tube known history of recent esophageal tear with surgical repair GI following admission CT with focal radiopacities, no larger than 7 mm, projecting over the upper thoracic esophagus, may represent swallowed foreign bodies. possible EGD today (7) Type 1 diabetes mellitus: Qualifiers: Diabetes mellitus complication status: with kidney complications Diabetes mellitus complication detail: with chronic kidney disease Chronic kidney disease stage: on chronic dialysis Qualified Code(s): E10.22 - Type 1 diabetes mellitus with diabetic chronic kidney disease; N18.6 - End stage renal disease; Z99.2 - Dependence on renal dialysis Code(s): E10.9 - Type 1 diabetes mellitus without complications Status: Chronic Assessment and Plan: follow accu-cheks glycemic control per intensivisit/hospitalist Will continue to follow. Subjective Date/time seen: 02/07/24 09:54 Interval history: Follow-up for end stage renal disease on hemodialysis. Chart reviewed -- assuming care from Dr. Nj; tolerating dialysis treatment at the time of my visit (seen on HD at 9:45AM); some issues with hypotension but being compensated with increase in vasopressors, IV albumin, and addition of midodrine; remains intubated/sedated and on mechanical ventilation; mental status remains unchanged. Exam Narrative: General: middle aged female intubated/sedated and on mechanical ventilation Heart: normal S1 and S2; no rub Lungs: coarse breath sounds throughout Abdomen: soft, nontender, nondistended, hypoactive bowel sounds Extremities: no cyanosis or clubbing; 1+ edema Skin: warm and dry; chronic venous stasis changes noted Objective Data Vital Signs Vital Signs: Vital Signs Temp Pulse Resp BP Pulse Ox O2 Del Method FiO2 02/07/24 09:45 75 105/43 L 02/07/24 09:30 75 109/42 L 02/07/24 09:15 75 107/44 L 02/07/24 11:18 88
--- NOTE | 2024-02-07 09:54 | P.PNNP_ITS ---
Progress Note: A&P Assessment and Plan (1) End stage renal disease: Code(s): N18.6 - End stage renal disease Status: Acute Assessment and Plan: * HD today * continue M/W/F dialysis schedule for now * follow electrolytes, volume status, and clearance * has been on dialysis since 2017 (2) Cardiac arrest: Code(s): I46.9 - Cardiac arrest, cause unspecified Status: Acute Assessment and Plan: * presumed etiology was respiratory event/hypoxia/aspiration * s/p ROSC with ACLS protocol (1 round of epinephrine, 1amp of bicarbonate, 1 amp calcium gluconate along with CPR) * Cardiolgy following * s/p TTM * follow telemetry; follow-up on Echo * trend of troponins noted (3) Acute respiratory failure with hypoxia and hypercapnia: Code(s): J96.01 - Acute respiratory failure with hypoxia; J96.02 - Acute respiratory fa ilure with hypercapnia Status: Acute Assessment and Plan: * multifactorial etiology: * cardiac arrest * aspiration * hypoxia * intubated and on ventilator support * CT of chest and CXR with suspected aspiration pneumonia and mild edema * weaning sedation as tolerated (4) Aspiration pneumonia: Code(s): J69.0 - Pneumonitis due to inhalation of food and vomit Status: Acute Assessment and Plan: * as suggested by imaging to date * blood/sputum culture pending * on antibiotic therapy * continue ventilator support (5) Anemia: Code(s): D64.9 - Anemia, unspecified Status: Chronic Assessment and Plan: * related to ESRD along with acute illness * Epogen with HD * follow trend of H/H (6) Esophageal obstruction due to food impaction: Code(s): T18.128A - Food in esophagus causing other injury, initial encounter; W44.F3XA - Food entering into or through a natural orifice, initial encounter Status: Acute Assessment and Plan: * OG tube was attempted but unsuccessful as it was met with resistance * once it was pulled out there was food particles at the end of the tube * known history of recent esophageal tear with surgical repair * GI following * admission CT with focal radiopacities, no larger than 7 mm, projecting over the upper thoracic esophagus, may represent swallowed foreign bodies. * possible EGD today (7) Type 1 diabetes mellitus: Qualifiers: Diabetes mellitus complication status: with kidney complications Diabetes mellitus complication detail: with chronic kidney disease Chronic kidney disease stage: on chronic dialysis Qualified Code(s): E10.22 - Type 1 diabetes mellitus with diabetic chronic kidney disease; N18.6 - End stage renal disease; Z99.2 - Dependence on renal dialysis Code(s): E10.9 - Type 1 diabetes mellitus without complications Status: Chronic Assessment and Plan: * follow accu-cheks * glycemic control per intensivisit/hospitalist Will continue to follow. Subjective Date/time seen: 02/07/24 09:54 Interval history: Follow-up for end stage renal disease on hemodialysis. Chart reviewed -- assuming care from Dr. Nj; tolerating dialysis treatment at the time of my visit (seen on HD at 9:45AM); some issues with hypotension but being compensated with increase in vasopressors, IV albumin, and addition of midodrine; remains intubated/sedated and on mechanical ventilation; mental status remains unchanged. Exam Narrative: General: middle aged female intubated/sedated and on mechanical ventilation Heart:
--- NOTE | 2024-02-07 10:06 | PM.PNCARD ---
Progress Note: A&P Assessment and Plan (1) Cardiac arrest: Code(s): I46.9 - Cardiac arrest, cause unspecified Status: Acute Assessment and Plan: Out of hospital arrest likely related in part to airway compromise rather than primary cardiac event. Rewarmed as of 8:10 a.m. this morning. EEG pending. Currently undergoing dialysis. Echo pending. Pending neurological recovery. (2) Esophageal obstruction due to food impaction: Code(s): T18.128A - Food in esophagus causing other injury, initial encounter; W44.F3XA - Food entering into or through a natural orifice, initial encounter Status: Acute (3) Elevated troponin: Code(s): R79.89 - Other specified abnormal findings of blood chemistry Status: Acute Assessment and Plan: Likely secondary to arrest resuscitation and unlikely from acute plaque rupture (4) Electrolyte imbalance: Code(s): E87.8 - Other disorders of electrolyte and fluid balance, not elsewhere classified Status: Acute Assessment and Plan: Potassium 3.3 today. Undergoing dialysis. Replace p.r.n. Subjective Date/time seen: 02/07/24 10:06 Interval history: This is a 58-year-old woman I am seeing today at the request of the hospitalist's and ICU staff because of a asystolic arrest that occurred yesterday outside of the hospital after which she was resuscitated and brought to the hospital and admitted. Date of service 02/07/2024: Completely warmed at this point. Nonresponsive. Review of Systems Review of Systems: ROS unobtainable: Yes unobtainable due to endotracheal tube Exam Const: Other: Intubated chronically ill-appearing white female unresponsive in the ICU HENMT: Mouth: Yes moist mucous membranes Eyes: Sclera: sclerae normal Neck: Neck: supple Other: Surgical incisions noted Resp: Other: Patient on ventilator breath sounds are coarse louder and rhonchorous throughout both lung barragan Cardio: Other: Very difficult examination because of the loud breath sounds Skin: General skin exam: normal color Neuro: Other: Unresponsive Extrem: Other: Adequate perfusion Objective Data Vital Signs Vital Signs: Vital Signs - 24 hr 02/06/24 11:00 02/06/24 12:00 02/06/24 12:00 Temperature 33.0 C L 33.0 C L Pulse Rate 55 L 49 L 49 L Respiratory Rate 22 H 22 H 22 H Blood Pressure 109/55 L 96/56 L Pulse Oximetry 100 100 Oxygen Delivery Fraction of Inspired Oxygen 02/06/24 12:00 02/06/24 12:00 02/06/24 12:00 Temperature Pulse Rate 49 L Respiratory Rate 22 H Blood Pressure Pulse Oximetry 100 Oxygen Delivery Mechanical Ventilation Fraction of Inspired Oxygen 40 40 02/06/24 12:00 02/06/24 13:00 02/06/24 13:34 Temperature 33.0 C L Pulse Rate 49 L 49 L 53 L Respiratory Rate 22 H 22 H Blood Pressure 105/47 L Pulse Oximetry 100 Oxygen Delivery Fraction of Inspired Oxygen 02/06/24 14:05 02/06/24 14:00 02/06/24 13:18 Temperature 33.0 C L Pulse Rate 56 L 57 L 50 L Respiratory Rate 22 H Blood Pressure 83/48 L 83/48 L Pulse Oximetry 100 100 Oxygen Delivery Mechanical Ventilation Fraction of Inspired Oxygen 50 02/06/24 14:00 02/06/24 14:00 02/06/24 14:19 Temperature Pulse Rate 57 L 57 L 57 L Respiratory Rate 22 H 22 H 22 H Blood Pressure 92/46 L Pulse Oximetry Oxygen Delivery Fraction of Inspired Oxygen 02/06/24 14:00 02/06/24 14:32 02/06/24 14:45 Temperature Pulse Rate 57 L 70 70 Respiratory Rate Blood Pressure 160/67 H 146/57 H Pulse Oximetry Oxygen Delivery Fraction of Inspired Oxygen 02/06/24 15:00 02/06/24 15:11 02/06/24 16:00 Temperature 33.6 C L 33.7 C L Pulse Rate 69 68 63 Respiratory Rate 22 H 22 H Blood Pressure 121/54 L 121/54 L 96/48 L Pulse Oximetry 100 100 Oxygen Delivery Fraction of Inspired Oxygen 02/06/24 16:00 02/06/24 16:00 02/06/24 16:00 Temp
--- NOTE | 2024-02-07 12:27 | SUR.OPER ---
1130: REPORT RECEIVED FROM LATA SCHMIDT RN. DR BAUTISTA SPOKE WITH PT FAMILY IN WAITING ROOM, CONSENT SIGNED FOR EGD. PT RECEIVING DIALYSIS DURING PROCEDURE WITH DIALYSIS NURSE AT BEDSIDE. LATA SCHMIDT, RN MANAGING PT SEDATION. 1133: IN ROOM TIME, PT VITAL SIGNS 118/63, 90, 18, 100% 1138: PROCEDURE START TIME, PT VS 107/84, 89, 18, 100% 1201: PROCEDURE END TIME, PT VS 121/66, 92, 20, 100% 1210: OUT ROOM TIME, PT VS 116/92, 92, 20, 100% REPORT GIVEN TO LATA SCHMIDT RN.
[2024-02-07] MEDS: EPOETIN ALFA-EPBX 10,000 UNITS/ML VIAL 10000 UNITS IV PUSH (12:33)
[2024-02-07] MEDS: MIDAZOLAM HCL (*CRX) 2 MG/2 ML VIAL IV PUSH (12:34)
[2024-02-07 13:12] LABS: Glucose Point of Care 117 mg/dl (65-105)
[2024-02-07 13:24] LABS: Creatine Kinase 103 U/L (30-135); Lactic Acid Reflex 1.4 mmol/L (0.7-2.0)
--- NOTE | 2024-02-07 14:11 | WPDNEURCNPN ---
Assessment and Plan Assessment and plan (1) Myoclonus: Code(s): G25.3 - Myoclonus Status: Acute (2) Cardiac arrest: Code(s): I46.9 - Cardiac arrest, cause unspecified Status: Acute (3) End stage renal disease: Code(s): N18.6 - End stage renal disease Status: Acute (4) Aspiration pneumonia: Code(s): J69.0 - Pneumonitis due to inhalation of food and vomit Status: Acute Plan Allen Macdonald is a 58 year old female with a history of CKD, DM, hypothyroidism, HLD, TIA presenting due to cardiac arrest on 02/04. She has been having myoclonic jerks during admission. Concern for epileptic vs subcortical myoclonus. Concern for anoxic brain injury is high. - Increase Keppra to 1000mg BID. With her most recent CrCl, would prefer not to increase dose further. - If still having movements, would increase versed - EEG tomorrow - MRI brain cannot be done while patient is intubated at this facility -- Repeat CT head tomorrow to look for any subacute changes - If movements persistent and are difficult to treat, would recommend transfer for video EEG monitoring and possibly MRI while intubated Consult date: 02/07/24 Reason for consult: Anoxicl brain injury, myoclonus HPI: Allen Macdonald is a 58 year old female with a history of CKD, DM, hypothyroidism, HLD, TIA, esophageal perforation s/p PEG tube, h/o infection involving the cervical spine hardware s/p washout and debridement in November 2022 complicated by endocarditis presenting due to cardiac arrest on 02/04. Patient [facility] residing at senior living. On day of admission she was having trouble with her secretions and unable to take anything by mouth. Patient's family was driving her to [facility] when patient became unresponsive in the car. Family started CPR. EMS was called. Patient was in asystole on their assessment. Per ICU doctor it took 15-120 min to achieve a pulse. She was taken to [place] [facility] where she was intubated. CT head showed focal pontine and midbrain hypodensities. She is on sedation of versed and fentanyl. She was placed on cooling protocol. She has had twitching movements of the extremities concerning for myoclonic jerks. EEG could not be done today. She has been started on Keppra 500mg BID but continues to have some jerking myoclonus. Patient was rewarmed this morning. Patient is on versed and fentanyl currently. Continues to have some jerking movements occasionally. Review of Systems Review of Systems: ROS unobtainable: Yes unobtainable due to endotracheal tube, unobtainable due to medical condition and unobtainable due to mental status PMFSH Past Medical History Medical History Aspiration pneumonitis Diabetic nephropathy Diabetic neuropathy Diabetic retinopathy Dysphagia End-stage renal disease on hemodialysis Esophageal perforation October 2023 Hyperlipidemia Hypothyroidism TIA (transient ischemic attack) Type 1 diabetes mellitus Surgical History Surgical History History of History of eye surgery History of fusion of cervical spine Anterior cervical fusion 2008 posterior cervical fusion October 2023 Status post insertion of percutaneous endoscopic gastrostomy (PEG) tube Status post tracheostomy (2014) Family History Family History Other Unknown family medical history Social History Social History Social History: Patient lives with her of 32 years prior to recent hospitalizations. They raised 3 children. Patient is a lifelong nonsmoker and does not use alcohol or illicit substances. Code status: Full code Surrogate decision maker: Smoking status: Never smoker Alcohol intake: never Substance use: never Substance use type: does not use Spiritual care concerns: No Meds Pallavi
[2024-02-07 15:42] LABS: Glucose Point of Care 123 mg/dl (65-105)
[2024-02-07] MEDS: PERFLUTREN LIPID MICROSPHERES 1.5 ML VIAL DILUTED TO 10 ML TOTAL VOLUME IV PUSH (17:13)
[2024-02-07] MEDS: MIDODRINE HCL 10 MG TABLET PO (17:19)
--- NOTE | 2024-02-07 17:38 | IVDEFINITY ---
Prior to administration of IV Definity the patient was educated on the risks and benefits of the imaging enhancing agent including potential adverse side effects. The patient verbalized understanding. Allergies were verified. No exclusion criteria were identified and at least one of the following inclusion criteria were met: 1) physician request, 2) patient technically difficult to image (per the [place] [employer] guidelines of two or more segments not discernable within the apical view), or 3) questionable left ventricular function. ?
--- NOTE | 2024-02-07 17:45 | WPDPN ---
Progress Note: A&P Assessment and Plan (1) Cardiac arrest: Code(s): I46.9 - Cardiac arrest, cause unspecified Status: Acute (2) Acute respiratory failure with hypoxia and hypercapnia: Code(s): J96.01 - Acute respiratory failure with hypoxia; J96.02 - Acute respiratory failure with hypercapnia Status: Acute (3) Esophageal obstruction due to food impaction: Code(s): T18.128A - Food in esophagus causing other injury, initial encounter; W44.F3XA - Food entering into or through a natural orifice, initial encounter Status: Acute (4) End-stage renal disease on hemodialysis: Code(s): N18.6 - End stage renal disease; Z99.2 - Dependence on renal dialysis Status: Chronic Assessment and Plan: Interval history 02/06/2024: patient with respiratory arrest resulting in systolic cardiac arrest out side the hospital, concerning for anoxic brain injury now on ventilator seen by hearing aid technician, preformer impregnated fabrics, and pediatric intensive physician, prognosis is guarded, will continue to monitor and further recommendation to follow. Interval history 02/07/2024: patient with respiratory arrest resulting in systolic cardiac arrest out side the hospital, concerning for anoxic brain injury now on ventilator, patient was placed on hypothermia protocol and today patient is off the protocol as patient is rewarmed, seen by hearing aid technician, preformer impregnated fabrics, and pediatric intensive physician, prognosis is guarded, will continue to monitor and further recommendation to follow. (5) Elevated troponin: Code(s): R79.89 - Other specified abnormal findings of blood chemistry Status: Acute (6) Type 1 diabetes mellitus: Qualifiers: Diabetes mellitus complication status: with kidney complications Diabetes mellitus complication detail: with chronic kidney disease Chronic kidney disease stage: on chronic dialysis Qualified Code(s): E10.22 - Type 1 diabetes mellitus with diabetic chronic kidney disease; N18.6 - End stage renal disease; Z99.2 - Dependence on renal dialysis Code(s): E10.9 - Type 1 diabetes mellitus without complications Status: Chronic Subjective Date/time seen: 02/07/24 17:45 Interval history: Interval history 02/07/2024: patient with respiratory arrest resulting in systolic cardiac arrest out side the hospital, concerning for anoxic brain injury now on ventilator, patient was placed on hypothermia protocol and today patient is off the protocol as patient is rewarmed, seen by hearing aid technician, preformer impregnated fabrics, and pediatric intensive physician, prognosis is guarded, will continue to monitor and further recommendation to follow. Review of Systems Review of Systems: ROS unobtainable: Yes unobtainable due to mental status Exam Narrative: General : no ventialator and sedated HEENT: ET tube is place HEART: RR S1 S2 lUNGS: B/L poor air entry ABD: obese EXT: edema NEURO: on vent and sedated. Objective Data Vital Signs Vital Signs: Vital Signs - 24 hr 02/06/24 18:00 02/06/24 18:00 02/06/24 18:00 Temperature 32.2 C L Pulse Rate 63 62 62 Respiratory Rate 22 H Blood Pressure 87/76 L 87/76 L Pulse Oximetry 98 Oxygen Delivery Fraction of Inspired Oxygen 02/06/24 18:05 02/06/24 18:00 02/06/24 18:00 Temperature Pulse Rate 63 62 62 Respiratory Rate 22 H 22 H Blood Pressure 91/54 L Pulse Oximetry Oxygen Delivery Fraction of Inspired Oxygen 02/06/24 18:15 02/06/24 18:20 02/06/24 18:30 Temperature Pulse Rate 64 65 73 Respiratory Rate Blood Pressure 90/49 L 106/49 L 133/55 L Pulse Oximetry Oxygen Delivery Fraction of Inspired Oxygen 02/06/24 18:35 02/06/24 18:40 02/06/24 18:45 Temperature Pulse Rate 73 73 73 Respiratory Rate Blood Pressure 120/97 H 151/55 H 119/49 L Pulse Oximetry Oxygen Delivery Fraction of Inspired Oxygen 02/06/24 19:00 02/06/24 20:00 02/06/24 20:00 Temperature 33.2 C L 33.7 C L Pulse Rate 70 71 72 Respiratory Rate
[2024-02-07] MEDS: VANCOMYCIN 750 MG/NS 250 ML 750 MG/250 ML BAG 250 MG IVPB (17:59)
--- NOTE | 2024-02-07 20:12 | PC.NURSE ---
[facility] made aware that patient is currently maintained on a ventilator and EEG is planned for tomorrow. Ref # [id number].
[2024-02-07] MEDS: levETIRAcetam 1000MG/NACL100ML 1,000 MG/100 ML BAG 400 MG IVPB (20:21)
[2024-02-07] MEDS: HEPARIN SODIUM 5,000 UNITS/ML VIAL 5000 UNITS SUB-Q (20:21)
[2024-02-07 21:26] LABS: Glucose Point of Care 114 mg/dl (65-105)
[2024-02-07 23:49] LABS: Glucose Point of Care 135 mg/dl (65-105)
[2024-02-08] VITALS (37 sets, daily range): BP systolic 103–153; BP diastolic 39–57; PULSE 72–87; RESP 20–24; TEMP 36.4–37.6; O2SAT 95–100
[2024-02-08] MEDS: CEFEPIME 1 GM/NS 50 ML 1 GM/50 ML BAG IVPB (01:40)
[2024-02-08] MEDS: LEVOTHYROXINE SODIUM 112 MCG TABLET FEED TUBE (05:01)
[2024-02-08] MEDS: metroNIDAZOLE 500 MG/ISO 100ML 500 MG/100 ML BAG 100 MG IVPB ×2 (05:01→16:13)
[2024-02-08] MEDS: CENTRAL LINE FLUSH 10 ML IV PUSH ×3 (05:01→20:02)
[2024-02-08 05:03] LABS: Hepatitis B Core Ab Total NON-REACTIVE (NON-REACTIVE)
[2024-02-08 05:22] LABS: Glucose Point of Care 159 mg/dl (65-105)
[2024-02-08 05:37] LABS: Alveolar/Arterial O2 Gradient 168.4 mmHg; Base Excess ABG -1.9 mEq/l (+/-2.0); Carboxyhemoglobin 0.7 % THb (0-2.0); Fractional Inspired Oxygen 45 %; Oxygen Content ABG 13.1 %vol (16.0-22.0); Oxygen Saturation ABG 98.6 % (95.0-100.0); Oxyhemoglobin 98.3 % THb (90.0-100.0); PCO2 ABG 29.2 mmHg (35.0-45.0); PO2 ABG 119.2 mmHg (80.0-100.0); PO2 FiO2 Ratio Arterial Blood 2.65 %; Total Hemoglobin 9.3 g/dL (12.0-18.0); pH ABG 7.475 (7.350-7.450)
[2024-02-08 05:38] LABS: Device VENTILATOR; Site Drawn RIGHT BRACHIAL
[2024-02-08 05:40] LABS: Arterial Blood Gas PEEP 5 cmH2O; Arterial Blood Gas Tidal Volume 350 ml; Arterial Blood Gas Vent Mode CMV; Arterial Blood Gas Ventilator rate 24 /MIN
[2024-02-08 06:48] LABS: Lactic Acid Reflex 1.3 mmol/L (0.7-2.0)
[2024-02-08 06:49] LABS: Alanine Aminotransferase 12 U/L (6-35); Albumin Level 3.3 g/dL (3.5-5.1); Alkaline Phosphatase 192 U/L (38-126); Anion Gap 18 mmol/L (4-12); Aspartate Amino Transferase 31 U/L (14-36); Bilirubin,Total 1.1 mg/dL (0.2-1.3); Blood Urea Nitrogen 16 mg/dL (7-17); Calcium 9.7 mg/dL (8.4-10.2); Carbon Dioxide 20 mmol/L (22-30); Chloride 99 mmol/L (98-107); Estimated CRCL calculation 26 ml/min; Estimated Glomerular Filt Rate 20; Glucose 161 mg/dL (65-110); Phosphorus 2.1 mg/dL (2.5-4.5); Potassium 3.7 mmol/L (3.4-5.0); Sodium 137 mmol/L (137-145)
[2024-02-08 07:07] LABS: Basophils Percent Auto 0.3 % (0.2-1.2); Eosinophils Percent Auto 0.4 % (0-4.4); Hematocrit 27.6 % (37.0-47.0); Hemoglobin 8.6 g/dL (12.0-15.0); Immature Granulocyte Absolute 0.11 K/mm3 (0.00-0.031); Immature Platelet Fraction Pct 5.7 % (0.9-11.2); Lymphocytes Absolute Auto 0.69 K/mm3 (0.9-3.2); Lymphocytes Percent Auto 6.3 % (18.3-44.2); Mean Corpuscular HGB Conc 31.2 g/dl (32-36); Mean Corpuscular Hemoglobin 30.8 pg (26-34); Mean Corpuscular Volume 98.9 fl (80-100); Mean Platelet Volume 11.9 fl (7.4-10.4); Monocytes Absolute Auto 1.2 K/mm3 (0.1-0.6); Monocytes Percent Auto 10.7 % (2.6-8.5); Neutrophils Absolute Auto 8.9 K/mm3 (1.3-6.7); Neutrophils Percent Auto 81.3 % (45.5-73.1); Platelet Count Result 129 k/mm3 (150-375); Red Blood Count 2.79 M/mm3 (4.2-5.4); Red Cell Distribution Width 16.9 % (11.5-14.5)
[2024-02-08 07:59] LABS: Glucose Point of Care 165 mg/dl (65-105)
[2024-02-08] MEDS: HEPARIN SODIUM 5,000 UNITS/ML VIAL 5000 UNITS SUB-Q ×2 (08:46→20:02)
[2024-02-08] MEDS: MINERAL OIL/WHITE PETROLATUM OINTMENT 1 APPLIC EACH EYE ×2 (08:46→20:03)
[2024-02-08] MEDS: MIDODRINE HCL 10 MG TABLET PO ×3 (08:46→16:13)
[2024-02-08] MEDS: PANTOPRAZOLE SODIUM IV 40 MG VIAL IV PUSH (08:46)
[2024-02-08] MEDS: levETIRAcetam 1000MG/NACL100ML 1,000 MG/100 ML BAG 400 MG IVPB ×2 (08:46→20:02)
--- NOTE | 2024-02-08 09:01 | WPDINTPN ---
Progress Note: A&P Assessment and Plan (1) Cardiac arrest: Code(s): I46.9 - Cardiac arrest, cause unspecified Status: Acute Assessment and Plan: Patient presented with cardiac arrest with successful ROSC with 1 round of epinephrine, 1 amp of bicarb and calcium gluconate with CPR. Most likely cause of cardiac arrest was respiratory event/hypoxia/aspiration. -troponins increased but have plateaued, 0.021, 1.390, 2.620, 2.570. -cardiology following -patient is not have any known cardiac history except for recent endocarditis -no cardiac arrhythmias overnight -echo done and report pending CT brain on admission : Focal pontine and midbrain hypodensities, most likely representing artifact from beam hardening although focal infarct could appear similarly. Consider MRI of the brain for further evaluation. CT chest abdomen and pelvis: Endotracheal tube terminates 1.6 cm above the nik, consider slight retraction. Right IJ/subclavian central line, in good position.Focal radiopacities, no larger than 7 mm, projecting over the upper thoracic esophagus, may represent swallowed foreign bodies. Aspiration pneumonitis, possible left lower lobe aspiration pneumonia, overlying changes of mild interstitial edema.Mild gallbladder hydrops with pericholecystic fluid, may be secondary to fasting and associated mild ascites, or obstruction and gallbladder inflammation, correlate with biliary labs. Moderate body wall edema. (2) Anoxic brain injury: Code(s): G93.1 - Anoxic brain damage, not elsewhere classified Status: Acute Assessment and Plan: Patient appears to have sustained anoxic brain injury secondary to cardiac arrest. Patient exhibiting myoclonic jerking under stimulus. -patient status post target temperature management, was rewarmed and reached her normal body temperature -continue Keppra as patient was having some myoclonic jerks -patient evaluated by Neurology -EEG is being done at this time -both Versed and fentanyl have been discontinued and monitor neuro status without sedation -neuro exam as above -will repeat head CT (3) Acute respiratory failure with hypoxia and hypercapnia: Code(s): J96.01 - Acute respiratory failure with hypoxia; J96.02 - Acute respiratory failure with hypercapnia Status: Acute Assessment and Plan: Acute respiratory failure likely related to cardiac arrest, stabilization of the airway. Most likely it was a respiratory event with aspiration pneumonia -currently on CMV mode of ventilation, peep of 5, 30% FiO2. Decrease respiratory rate to 20 -chest x-ray and ABGs reviewed -chest x-ray and CT chest showing pneumonia likely related to aspiration -continue cefepime, metronidazole. Will discuss vancomycin (02/07) -02/04: Blood cultures -preliminary results are negative x2 -02/05: Sputum cultures obtained and pending -sedated with fentanyl and Versed infusion, have asked the bedside RN to start weaning the sedation to evaluate her mental status (4) Esophageal obstruction due to food impaction: Code(s): T18.128A - Food in esophagus causing other injury, initial encounter; W44.F3XA - Food entering into or through a natural orifice, initial encounter Status: Acute Assessment and Plan: OG tube was attempted but unsuccessful as it was met with resistance, once it was pulled out there was food particles at the end of the tube -patient has had a recent esophageal tear with surgical repair in [place] -GI was consulted -CT scan on admission as above showed .Focal radiopacities, no larger than 7 mm, projecting over the upper thoracic esophagus, may represent swallowed foreign bodies. -patient underwent EGD on 02/06 which showed unspecified esophagitis esophageal diverticulum and gastritis. To previous surgical clips were noted in the proximal esophagus. A large amount of retained food was seen in the distal esophagus. A foreign body was removed. Severe esophagitis
--- NOTE | 2024-02-08 09:34 | PM.PNNEP ---
Progress Note: A&P Assessment and Plan (1) End stage renal disease: Code(s): N18.6 - End stage renal disease Status: Acute Assessment and Plan: HD tomorrow continue M/W/F dialysis schedule for now follow electrolytes, volume status, and clearance has been on dialysis since 2017 (2) Cardiac arrest: Code(s): I46.9 - Cardiac arrest, cause unspecified Status: Acute Assessment and Plan: presumed etiology was respiratory event/hypoxia/aspiration s/p ROSC with ACLS protocol (1 round of epinephrine, 1amp of bicarbonate, 1 amp calcium gluconate along with CPR) Cardiolgy following s/p TTM follow telemetry Echo results noted trend of troponins noted (3) Acute respiratory failure with hypoxia and hypercapnia: Code(s): J96.01 - Acute respiratory failure with hypoxia; J96.02 - Acute respiratory failure with hypercapnia Status: Acute Assessment and Plan: multifactorial etiology: cardiac arrest aspiration hypoxia intubated and on ventilator support CT of chest and CXR with suspected aspiration pneumonia and mild edema weaning sedation as tolerated (4) Aspiration pneumonia: Code(s): J69.0 - Pneumonitis due to inhalation of food and vomit Status: Acute Assessment and Plan: as suggested by imaging to date blood/sputum culture pending on antibiotic therapy continue ventilator support (5) Anemia: Code(s): D64.9 - Anemia, unspecified Status: Chronic Assessment and Plan: related to ESRD along with acute illness Epogen with HD follow trend of H/H (6) Esophageal obstruction due to food impaction: Code(s): T18.128A - Food in esophagus causing other injury, initial encounter; W44.F3XA - Food entering into or through a natural orifice, initial encounter Status: Acute Assessment and Plan: OG tube was attempted but unsuccessful as it was met with resistance once it was pulled out there was food particles at the end of the tube known history of recent esophageal tear with surgical repair GI following admission CT with focal radiopacities, no larger than 7 mm, projecting over the upper thoracic esophagus, may represent swallowed foreign bodies. s/p EGD (on 02/06) with findings noted (7) Anoxic brain injury: Code(s): G93.1 - Anoxic brain damage, not elsewhere classified Status: Acute Assessment and Plan: suspected based on evidence to date s/p TTM myoclonic jerks noted - on [facility] Neurology following EEG pending off sedation will attempt dialysis later today for further clearance of sedative medications as well as fluid removal consider repeat brain imaging (8) Type 1 diabetes mellitus: Qualifiers: Chronic kidney disease stage: on chronic dialysis Diabetes mellitus complication detail: with chronic kidney disease Diabetes mellitus complication status: with kidney complications Qualified Code(s): E10.22 - Type 1 diabetes mellitus with diabetic chronic kidney disease; N18.6 - End stage renal disease; Z99.2 - Dependence on renal dialysis Code(s): E10.9 - Type 1 diabetes mellitus without complications Status: Chronic Assessment and Plan: follow accu-cheks glycemic control per intensivisit/hospitalist Will continue to follow. Subjective Date/time seen: 02/08/24 09:34 Interval history: Follow-up for end stage renal disease on hemodialysis. Tolerated dialysis treatment yesterday although fluid removal/ultrafiltration was limited due to hemodynamics/hypotension; remains intubated and on mechanical ventilation; off sedation since early this morning but remains unresponsive; weaned off levophed with stable hemodynamics; no other issue/events overnight or earlier this morning. Exam Narrative: General: middle aged female intubated and on mechanical ventilation Heart: normal S1 and S2; no rub Lungs: coarse b
--- NOTE | 2024-02-08 09:34 | P.PNNP_ITS ---
Progress Note: A&P Assessment and Plan (1) End stage renal disease: Code(s): N18.6 - End stage renal disease Status: Acute Assessment and Plan: * HD tomorrow * continue M/W/F dialysis schedule for now * follow electrolytes, volume status, and clearance * has been on dialysis since 2017 (2) Cardiac arrest: Code(s): I46.9 - Cardiac arrest, cause unspecified Status: Acute Assessment and Plan: * presumed etiology was respiratory event/hypoxia/aspiration * s/p ROSC with ACLS protocol (1 round of epinephrine, 1amp of bicarbonate, 1 amp calcium gluconate along with CPR) * Cardiolgy following * s/p TTM * follow telemetry * Echo results noted * trend of troponins noted (3) Acute respiratory failure with hypoxia and hypercapnia: Code(s): J96.01 - Acute respiratory failure with hypoxia; J96.02 - Acute respiratory failure with hypercapnia Status: Acute Assessment and Plan: * multifactorial etiology: * cardiac arrest * aspiration * hypoxia * intubated and on ventilator support * CT of chest and CXR with suspected aspiration pneumonia and mild edema * weaning sedation as tolerated (4) Aspiration pneumonia: Code(s): J69.0 - Pneumonitis due to inhalation of food and vomit Status: Acute Assessment and Plan: * as suggested by imaging to date * blood/sputum culture pending * on antibiotic therapy * continue ventilator support (5) Anemia: Code(s): D64.9 - Anemia, unspecified Status: Chronic Assessment and Plan: * related to ESRD along with acute illness * Epogen with HD * follow trend of H/H (6) Esophageal obstruction due to food impaction: Code(s): T18.128A - Food in esophagus causing other injury, initial encounter; W44.F3XA - Food entering into or through a natural orifice, initial encounter Status: Acute Assessment and Plan: * OG tube was attempted but unsuccessful as it was met with resistance * once it was pulled out there was food particles at the end of the tube * known history of recent esophageal tear with surgical repair * GI following * admission CT with focal radiopacities, no larger than 7 mm, projecting over the upper thoracic esophagus, may represent swallowed foreign bodies. * s/p EGD (on 02/06) with findings noted (7) Anoxic brain injury: Code(s): G93.1 - Anoxic brain damage, not elsewhere classified Status: Acute Assessment and Plan: * suspected based on evidence to date * s/p TTM * myoclonic jerks noted - on Keppra * Neurology following * EEG pending * off sedation * will attempt dialysis later today for further clearance of sedative medications as well as fluid removal * consider repeat brain imaging (8) Type 1 diabetes mellitus: Qualifiers: Chronic kidney disease stage: on chronic dialysis Diabetes mellitus complication detail: with chronic kidney disease Diabetes mellitus complication status: with kidney complications Qualified Code(s): E10.22 - Type 1 diabetes mellitus with diabetic chronic kidney disease; N18.6 - End stage renal disease; Z99.2 - Dependence on renal dialysis Code(s): E10.9 - Type 1 diabetes mellitus without complications Status: Chronic Assessment and Plan: * follow accu-cheks * glycemic control per intensivisit/hospitalist Will continue to follow. Subjective Date/time seen: 02/08/24 09:34 Interval history: Follow-up for end stage renal disease on hemodialysi
[2024-02-08] MEDS: POTASSIUM PHOS,M-BASIC-D-BASIC 15 MMOL in SODIUM CHLORIDE 0.9% IV 250 ML 63.75 MMOL IVPB (09:47)
--- NOTE | 2024-02-08 09:57 | WPDNEUROLOGY ---
Neurology EEG Report General Information Date of Study: 02/08/24 TEST eeg DIAGNOSIS Status post cardiac arrest with myoclonic jerks CONDITION OF RECORDING coma toes EEG NUMBER [id number] CLINICAL HISTORY patient is in ICU on vent following cardiac arrest and hypothermia therapy. Normal temperature for the last 24hours and no sedation for over 3hours but remains unresponsive. EEG DESCRIPTION Whole record consists of by lateral 1/4 seconds myoclonic jerk throughout the tracing. Obviously hyperventilation not done and photic stimulation not done. Nonfocal . Non Lateralizing. IMPRESSION Abnormal record due to the presence of myoclonic status. Clinical correlation recommended
--- NOTE | 2024-02-08 10:55 | PCNFU ---
Nutrition Follow-Up Complete: Increased energy expenditure related to mechanical ventilation as evidenced by need for trophic tube feeding Goal: Meet estimated protein energy needs Patient is progressing towards goal. We will continue current goal. Pt current nutrition is Nepro at 40 ml/hr. . Nutrition recommendation: Last recorded weight is 96.9 kg. Bowel Motility: Labs Reviewed: Meds Noted: Skin: Additional Notes: Monitoring tube feeding tolerance, meds, vitals, weights, labs, plan of care Follow daily in ICU rounds, reassess Tuesdays and Fridays
--- NOTE | 2024-02-08 10:56 | PCNFU ---
Nutrition Follow-Up Complete: Increased energy expenditure related to mechanical ventilation as evidenced by need for trophic tube feeding Goal: Meet estimated protein energy needs Patient is progressing towards goal. We will continue current goal. Pt current nutrition is Nepro at 20 ml/hr. Nutrition recommendation: 40 ml/hr. Last recorded weight is 96.9 kg, up from 92 kg on admit. Bowel Motility: +BM reported 02/06 Labs Reviewed:Glu 161, Cr 2.5,Alb 3.3 Meds Noted: Keppra, Protonix Skin: WNL Additional Notes: Patient remains on mechanical vent. No sedation. Tube feedings are being tolerating of Nepro at 20 ml/hr with plans to increase to goal of 40 ml/hr. Tube feedings at goal rate providing 1584 kcals/71 gm protein/640 ml water. Flush 30 ml q 4 hours. Agree with diet orders at this time. Discussions with Explosive Operator Bomb regarding Protein Modular today. No orders for modular at this time. Will continue to monitor and follow with plan of care. Monitoring tube feeding tolerance, meds, vitals, weights, labs, plan of care Follow daily in ICU rounds, reassess Tuesdays and Fridays
[2024-02-08 11:31] LABS: Glucose Point of Care 206 mg/dl (65-105)
[2024-02-08] MEDS: INSULIN ASPART (*BKC) 100 UNITS/ML SUB-Q ×2 (12:06→20:27)
[2024-02-08] MEDS: SODIUM CHLORIDE 0.9% IV 1,000 ML 999 ML IV CONT (12:45)
[2024-02-08] MEDS: EPOETIN ALFA-EPBX 10,000 UNITS/ML VIAL 10000 UNITS IV PUSH (13:02)
--- NOTE | 2024-02-08 14:11 | PCCARD ---
EKG ORDERED 02/07/24 @2242 WAS NOT DONE - CANCELLED ORDER
[2024-02-08 16:38] LABS: Glucose Point of Care 160 mg/dl (65-105)
--- NOTE | 2024-02-08 16:44 | WPDGIPROGNO ---
Progress Note: A&P Assessment and Plan (1) Esophageal obstruction due to food impaction: Code(s): T18.128A - Food in esophagus causing other injury, initial encounter; W44.F3XA - Food entering into or through a natural orifice, initial encounter Status: Acute Assessment and Plan: egd yesterday with removal of retained food now tolerating tube feeding by g tube will follow as needed (2) Dysphagia: Qualifiers: Dysphagia type: unspecified Qualified Code(s): R13.10 - Dysphagia, unspecified Code(s): R13.10 - Dysphagia, unspecified Status: Acute (3) End-stage renal disease on hemodialysis: Code(s): N18.6 - End stage renal disease; Z99.2 - Dependence on renal dialysis Status: Chronic (4) Aspiration pneumonia: Code(s): J69.0 - Pneumonitis due to inhalation of food and vomit Status: Acute Assessment and Plan: on abx (5) Anoxic brain injury: Code(s): G93.1 - Anoxic brain damage, not elsewhere classified Status: Acute Assessment and Plan: neurology on board completed EEG and myoclonus (6) Myoclonus: Code(s): G25.3 - Myoclonus Status: Acute (7) Anemia: Code(s): D64.9 - Anemia, unspecified Status: Chronic (8) Cardiac arrest: Code(s): I46.9 - Cardiac arrest, cause unspecified Status: Acute Assessment and Plan: on admission, required cpr and currently intubated Subjective Date/time seen: 02/08/24 16:44 Interval history: tolerating G tube at 40 ml/h still with myoclonus Review of Systems Review of Systems: All systems reviewed & are unremarkable except as noted in HPI and below Exam Narrative: General: Intubated and sedated, in no distress HEENT:? Pupils are sluggish but reactive to light and equal, sclera is clear Neck:? Abrasion seen and the neck anteriorly and on the right side Respiratory:? Coarse breath sounds bilaterally, decreased at bases, no wheezing, adequate air entry Cardiac:? S1-S2 was normal, regular rate and rhythm Abdomen:? Soft, nontender, nondistended, hypoactive bowel sounds Extremities:? 1+ pitting edema, tunneled PICC line and right anterior chest Neuro:? Patient is intubated,does not open her eyes or follow simple commands Skin:? Chronic venous stasis changes Psych:? Unable to assess at this time Objective Data Vital Signs Vital Signs: Vital Signs - 24 hr 02/07/24 17:50 02/07/24 17:50 02/07/24 18:00 Temperature Pulse Rate 92 92 92 Respiratory Rate 27 H 26 H Blood Pressure 107/38 L Pulse Oximetry 100 100 100 Oxygen Delivery Mechanical Ventilation Mechanical Ventilation Fraction of Inspired Oxygen 45 45 02/07/24 18:00 02/07/24 18:00 02/07/24 18:00 Temperature Pulse Rate 92 92 92 Respiratory Rate 26 H 26 H Blood Pressure 107/38 L Pulse Oximetry Oxygen Delivery Fraction of Inspired Oxygen 02/07/24 18:00 02/07/24 20:00 02/07/24 20:00 Temperature Pulse Rate 92 91 91 Respiratory Rate 25 H Blood Pressure 102/36 L Pulse Oximetry Oxygen Delivery Fraction of Inspired Oxygen 02/07/24 20:00 02/07/24 20:00 02/07/24 22:00 Temperature Pulse Rate 91 90 89 Respiratory Rate 25 H Blood Pressure Pulse Oximetry Oxygen Delivery Fraction of Inspired Oxygen 02/07/24 20:00 02/07/24 22:00 02/07/24 22:00 Temperature 99 F Pulse Rate 90 89 88 Respiratory Rate 29 H 24 H Blood Pressure 102/55 L 125/43 L 125/43 L Pulse Oximetry 100 100 Oxygen Delivery Fraction of Inspired Oxygen 02/07/24 22:00 02/07/24 22:00 02/07/24 20:00 Temperature Pulse Rate 88 88 Respiratory Rate 24 H 24 H Blood Pressure Pulse Oximetry 100 Oxygen Delivery Mechanical Ventilation Fraction of Inspired Oxygen 45 02/07/24 20:00 02/07/24 19:30 02/07/24 23:38 Temperature Pulse Rate 92 83 Respiratory Rate Blood Pressure Pulse Oximetry 100 100 Oxygen Delivery Mechan
--- NOTE | 2024-02-08 17:07 | WPDPN ---
Progress Note: A&P Assessment and Plan (1) Cardiac arrest: Code(s): I46.9 - Cardiac arrest, cause unspecified Status: Acute (2) Acute respiratory failure with hypoxia and hypercapnia: Code(s): J96.01 - Acute respiratory failure with hypoxia; J96.02 - Acute respiratory failure with hypercapnia Status: Acute (3) Esophageal obstruction due to food impaction: Code(s): T18.128A - Food in esophagus causing other injury, initial encounter; W44.F3XA - Food entering into or through a natural orifice, initial encounter Status: Acute (4) End-stage renal disease on hemodialysis: Code(s): N18.6 - End stage renal disease; Z99.2 - Dependence on renal dialysis Status: Chronic (5) Elevated troponin: Code(s): R79.89 - Other specified abnormal findings of blood chemistry Status: Acute (6) Type 1 diabetes mellitus: Qualifiers: Diabetes mellitus complication status: with kidney complications Diabetes mellitus complication detail: with chronic kidney disease Chronic kidney disease stage: on chronic dialysis Qualified Code(s): E10.22 - Type 1 diabetes mellitus with diabetic chronic kidney disease; N18.6 - End stage renal disease; Z99.2 - Dependence on renal dialysis Code(s): E10.9 - Type 1 diabetes mellitus without complications Status: Chronic Plan Interval history 02/06/2024: patient with respiratory arrest resulting in systolic cardiac arrest out side the hospital, concerning for anoxic brain injury now on ventilator seen by educational resource center teacher, stationary boiler fireman, and hub associate, prognosis is guarded, will continue to monitor and further recommendation to follow. Interval history 02/07/2024: patient with respiratory arrest resulting in systolic cardiac arrest out side the hospital, concerning for anoxic brain injury now on ventilator, patient was placed on hypothermia protocol and today patient is off the protocol as patient is rewarmed, seen by educational resource center teacher, stationary boiler fireman, and hub associate, prognosis is guarded, will continue to monitor and further recommendation to follow. Interval history 02/08/2024: patient with respiratory arrest resulting in systolic cardiac arrest out side the hospital, concerning for anoxic brain injury now on ventilator, patient was placed on hypothermia protocol and on 02/06 patient eas taken off the protocol as patient is rewarmed, patient has been off sedation for several hours however patient is not responsice, had EEG which is abnormal, patient will be seen by neurologist, seen by educational resource center teacher, stationary boiler fireman, and hub associate, prognosis is guarded, will continue to monitor and further recommendation to follow. patient son is present in the room. Subjective Date/time seen: 02/08/24 17:07 Interval history: Interval history 02/06/2024: patient with respiratory arrest resulting in systolic cardiac arrest out side the hospital, concerning for anoxic brain injury now on ventilator seen by educational resource center teacher, stationary boiler fireman, and hub associate, prognosis is guarded, will continue to monitor and further recommendation to follow. Interval history 02/07/2024: patient with respiratory arrest resulting in systolic cardiac arrest out side the hospital, concerning for anoxic brain injury now on ventilator, patient was placed on hypothermia protocol and today patient is off the protocol as patient is rewarmed, seen by educational resource center teacher, stationary boiler fireman, and hub associate, prognosis is guarded, will continue to monitor and further recommendation to follow. Interval history 02/08/2024: patient with respiratory arrest resulting in systolic cardiac arrest out side the hospital, concerning for anoxic brain injury now on ventilator, patient was placed on hypothermia protocol and on 02/06 patient eas taken off the protocol as patient is rewarmed, patient has been off sedation for several hours however patient is not responsice, had EEG which is abnormal, patient will be seen by neurologist, seen by
[2024-02-08 20:31] LABS: Glucose Point of Care 288 mg/dl (65-105)
[2024-02-09] VITALS (38 sets, daily range): BP systolic 124–157; BP diastolic 43–58; PULSE 74–85; RESP 18–20; TEMP 36.4–38.3; O2SAT 93–99
[2024-02-09] MEDS: CEFEPIME 1 GM/NS 50 ML 1 GM/50 ML BAG IVPB ×2 (00:01→13:29)
[2024-02-09] MEDS: metroNIDAZOLE 500 MG/ISO 100ML 500 MG/100 ML BAG 100 MG IVPB ×4 (00:02→21:04)
[2024-02-09] MEDS: INSULIN ASPART (*BKC) 100 UNITS/ML SUB-Q ×5 (00:06→21:02)
[2024-02-09 00:11] LABS: Glucose Point of Care 234 mg/dl (65-105)
[2024-02-09] MEDS: LEVOTHYROXINE SODIUM 112 MCG TABLET FEED TUBE (05:35)
[2024-02-09] MEDS: CENTRAL LINE FLUSH 10 ML IV PUSH ×3 (05:35→21:05)
[2024-02-09 05:46] LABS: Basophils Absolute Auto 0.1 K/mm3 (0.0-0.1); Basophils Percent Auto 0.6 % (0.2-1.2); Eosinophils Absolute Auto 0.1 K/mm3 (0-0.3); Eosinophils Percent Auto 1.2 % (0-4.4); Hemoglobin 9.4 g/dL (12.0-15.0); Immature Granulocyte Absolute 0.15 K/mm3 (0.00-0.031); Immature Granulocyte Percent A 1.4 % (0-0.5); Lymphocytes Percent Auto 5.6 % (18.3-44.2); Mean Corpuscular HGB Conc 31.3 g/dl (32-36); Mean Corpuscular Hemoglobin 30.4 pg (26-34); Mean Corpuscular Volume 97.1 fl (80-100); Mean Platelet Volume 11.4 fl (7.4-10.4); Monocytes Absolute Auto 1.1 K/mm3 (0.1-0.6); Monocytes Percent Auto 9.9 % (2.6-8.5); Neutrophils Absolute Auto 8.7 K/mm3 (1.3-6.7); Neutrophils Percent Auto 81.3 % (45.5-73.1); Platelet Count Result 148 k/mm3 (150-375); Red Blood Count 3.09 M/mm3 (4.2-5.4); White Blood Count 10.7 K/mm3 (4.5-10.0)
[2024-02-09 05:54] LABS: Alanine Aminotransferase 14 U/L (6-35); Albumin Level 3.3 g/dL (3.5-5.1); Alkaline Phosphatase 274 U/L (38-126); Anion Gap 13 mmol/L (4-12); Aspartate Amino Transferase 27 U/L (14-36); Blood Urea Nitrogen 17 mg/dL (7-17); Calcium 9.6 mg/dL (8.4-10.2); Carbon Dioxide 29 mmol/L (22-30); Chloride 95 mmol/L (98-107); Estimated CRCL calculation 32 ml/min; Estimated Glomerular Filt Rate 26; Glucose 283 mg/dL (65-110); Phosphorus 1.9 mg/dL (2.5-4.5); Potassium 3.6 mmol/L (3.4-5.0); Sodium 137 mmol/L (137-145)
[2024-02-09 05:56] LABS: Alveolar/Arterial O2 Gradient 108.4 mmHg; Base Excess ABG 4.5 mEq/l (+/-2.0); Carboxyhemoglobin 0.9 % THb (0-2.0); Fractional Inspired Oxygen 30 %; HCO3 ABG 28.6 mEq/l (22.0-26.0); Methemoglobin ABG 0.3 %THb (0-1.5); Oxygen Content ABG 15.3 %vol (16.0-22.0); Oxygen Saturation ABG 91.2 % (95.0-100.0); Oxyhemoglobin 89.7 % THb (90.0-100.0); PCO2 ABG 41.1 mmHg (35.0-45.0); PO2 ABG 57.2 mmHg (80.0-100.0); PO2 FiO2 Ratio Arterial Blood 1.91 %; Reduced Hemoglobin 9.1 %THb (0-5.0); Total Hemoglobin 12.1 g/dL (12.0-18.0); pH ABG 7.461 (7.350-7.450)
[2024-02-09 05:57] LABS: Device VENTILATOR; Site Drawn RIGHT BRACHIAL
[2024-02-09 05:58] LABS: Arterial Blood Gas PEEP 5 cmH2O; Arterial Blood Gas Tidal Volume 350 ml; Arterial Blood Gas Vent Mode CMV; Arterial Blood Gas Ventilator rate 20 /MIN
[2024-02-09 07:33] LABS: Glucose Point of Care 281 mg/dl (65-105)
[2024-02-09] MEDS: levETIRAcetam 1000MG/NACL100ML 1,000 MG/100 ML BAG 400 MG IVPB ×2 (07:35→21:02)
[2024-02-09] MEDS: MINERAL OIL/WHITE PETROLATUM OINTMENT 1 APPLIC EACH EYE ×2 (07:36→21:04)
[2024-02-09] MEDS: PANTOPRAZOLE SODIUM IV 40 MG VIAL IV PUSH (07:36)
[2024-02-09] MEDS: HEPARIN SODIUM 5,000 UNITS/ML VIAL 5000 UNITS SUB-Q ×2 (07:48→21:04)
[2024-02-09] MEDS: EPOETIN ALFA-EPBX 10,000 UNITS/ML VIAL 10000 UNITS IV PUSH (08:35)
[2024-02-09] MEDS: SODIUM CHLORIDE 0.9% IV 1,000 ML 999 ML IV CONT (08:36)
--- NOTE | 2024-02-09 08:44 | WPDINTPN ---
Progress Note: A&P Assessment and Plan (1) Cardiac arrest: Code(s): I46.9 - Cardiac arrest, cause unspecified Status: Acute Assessment and Plan: Patient presented with cardiac arrest with successful ROSC with 1 round of epinephrine, 1 amp of bicarb and calcium gluconate with CPR. Most likely cause of cardiac arrest was respiratory event/hypoxia/aspiration. -troponins increased but have plateaued, 0.021, 1.390, 2.620, 2.570. -cardiology following -patient is not have any known cardiac history except for recent endocarditis -no cardiac arrhythmias overnight -echo done and report below CT brain on admission : Focal pontine and midbrain hypodensities, most likely representing artifact from beam hardening although focal infarct could appear similarly. Consider MRI of the brain for further evaluation. CT chest abdomen and pelvis: Endotracheal tube terminates 1.6 cm above the nik, consider slight retraction. Right IJ/subclavian central line, in good position.Focal radiopacities, no larger than 7 mm, projecting over the upper thoracic esophagus, may represent swallowed foreign bodies. Aspiration pneumonitis, possible left lower lobe aspiration pneumonia, overlying changes of mild interstitial edema.Mild gallbladder hydrops with pericholecystic fluid, may be secondary to fasting and associated mild ascites, or obstruction and gallbladder inflammation, correlate with biliary labs. Moderate body wall edema. Echo Summary 1. Left ventricular chamber dimension is normal. 2. Left ventricular systolic function is normal, estimated at 65-70%. 3. Left ventricular septal wall motion is abnormal with septal motion related to bundle branch block. 4. Right ventricular chamber dimension is mildly enlarged. 5. Right ventricular systolic function is normal. 6. Left atrial chamber dimension is mildly enlarged. 7. Right atrial chamber dimension is mildly enlarged. 8. There is moderate aortic valve calcification. 9. There is mild aortic valve regurgitation. 10. The mitral valve has thickened leaflets. 11. The mitral valve annulus is severely calcified. 12. There is mild mitral valve regurgitation. 13. There is mild tricuspid valve regurgitation. 14. There is mild pulmonic regurgitation. 15. Dilated inferior vena cava with no collapse upon inspiration consistent with elevated right atrial pressure, 15 mmHg. 16. Left pleural effusion present. (2) Anoxic brain injury: Code(s): G93.1 - Anoxic brain damage, not elsewhere classified Status: Acute Assessment and Plan: Patient appears to have sustained anoxic brain injury secondary to cardiac arrest. Patient exhibiting myoclonic jerking with painful stimulus. Patient does not have any other response. Neuro exam as above -patient status post target temperature management, was rewarmed and reached her normal body temperature -continue Keppra at this time -patient evaluated by Neurology -EEG 02/07 Abnormal record due to the presence of myoclonic status. Clinical correlation recommended -repeat head CT 02/07 was unremarkable -both Versed and fentanyl have been discontinued> 24 hours. Patient was dialyzed yesterday and will be dialyzed again today -continue monitoring. Prognosis appears poor (3) Acute respiratory failure with hypoxia and hypercapnia: Code(s): J96.01 - Acute respiratory failure with hypoxia; J96.02 - Acute respiratory failure with hypercapnia Status: Acute Assessment and Plan: Acute respiratory failure likely related to cardiac arrest, stabilization of the airway. Most likely it was a respiratory event with aspiration pneumonia -currently on CMV mode of ventilation, peep of 5, 30% FiO2. Decrease respiratory rate to 18 -chest x-ray and ABGs reviewed -chest x-ray and CT chest showing pneumonia likely related to aspiration -continue cefepime, metronidazole for aspiration mode. Vancomycin was discontinued (02/07) -02/04: Blood c
[2024-02-09] MEDS: MIDODRINE HCL 10 MG TABLET PO (08:58)
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
[2024-02-09] MEDS: POTASSIUM/PHOSPHORUS/SODIUM 1.5 GM PACKET 1 PACKET FEED TUBE (09:02)
--- NOTE | 2024-02-09 10:40 | P.PNNP_ITS ---
Progress Note: A&P Assessment and Plan (1) End stage renal disease: Code(s): N18.6 - End stage renal disease Status: Acute Assessment and Plan: * HD today * continue M/W/F dialysis schedule for now * follow electrolytes, volume status, and clearance * has been on dialysis since 2017 (2) Cardiac arrest: Code(s): I46.9 - Cardiac arrest, cause unspecified Status: Acute Assessment and Plan: * presumed etiology was respiratory event/hypoxia/aspiration * s/p ROSC with ACLS protocol (1 round of epinephrine, 1amp of bicarbonate, 1 amp calcium gluconate along with CPR) * Cardiolgy following * s/p TTM * follow telemetry * Echo results noted * trend of troponins noted (3) Acute respiratory failure with hypoxia and hypercapnia: Code(s): J96.01 - Acute respiratory failure with hypoxia; J96.02 - Acute respiratory f ailure with hypercapnia Status: Acute Assessment and Plan: * multifactorial etiology: * cardiac arrest * aspiration * hypoxia * intubated and on ventilator support * CT of chest and CXR with suspected aspiration pneumonia and mild edema * ventilator weaning as tolerated (4) Aspiration pneumonia: Code(s): J69.0 - Pneumonitis due to inhalation of food and vomit Status: Acute Assessment and Plan: * as suggested by imaging to date * blood/sputum culture results noted * on antibiotic therapy * continue ventilator support (5) Anemia: Code(s): D64.9 - Anemia, unspecified Status: Chronic Assessment and Plan: * related to ESRD along with acute illness * Epogen with HD * follow trend of H/H (6) Esophageal obstruction due to food impaction: Code(s): T18.128A - Food in esophagus causing other injury, initial encounter; W44.F3XA - Food entering into or through a natural orifice, initial encounter Status: Acute Assessment and Plan: * OG tube was attempted but unsuccessful as it was met with resistance * once it was pulled out there was food particles at the end of the tube * known history of recent esophageal tear with surgical repair * GI following * admission CT with focal radiopacities, no larger than 7 mm, projecting over the upper thoracic esophagus, may represent swallowed foreign bodies. * s/p EGD (on 02/06) with findings noted (7) Anoxic brain injury: Code(s): G93.1 - Anoxic brain damage, not elsewhere classified Status: Acute Assessment and Plan: * suspected based on evidence to date * s/p TTM * myoclonic jerks noted - on Keppra * Neurology following * EEG results reviewed * off sedation (but remains unresponsive) * further imaging needed(?) (8) Type 1 diabetes mellitus: Qualifiers: Diabetes mellitus complication status: with kidney complications Diabetes mellitus complication detail: with chronic kidney disease Chronic kidney disease stage: on chronic dialysis Qualified Code(s): E10.22 - Type 1 diabetes mellitus with diabetic chronic kidney disease; N18.6 - End stage renal disease; Z99.2 - Dependence on renal dialysis Code(s): E10.9 - Type 1 diabetes mellitus without complications Status: Chronic Assessment and Plan: * follow accu-cheks * glycemic control per intensivisit/hospitalist Family meeting today to discuss long-term goals of therapy given lack of jose daniel rological improvement in the last 24 - 48 hours. Will continue to follow. Subjective Date/time seen: 02/09/24 10:40 Interval history:
--- NOTE | 2024-02-09 10:40 | PM.PNNEP ---
Progress Note: A&P Assessment and Plan (1) End stage renal disease: Code(s): N18.6 - End stage renal disease Status: Acute Assessment and Plan: HD today continue M/W/F dialysis schedule for now follow electrolytes, volume status, and clearance has been on dialysis since 2017 (2) Cardiac arrest: Code(s): I46.9 - Cardiac arrest, cause unspecified Status: Acute Assessment and Plan: presumed etiology was respiratory event/hypoxia/aspiration s/p ROSC with ACLS protocol (1 round of epinephrine, 1amp of bicarbonate, 1 amp calcium gluconate along with CPR) Cardiolgy following s/p TTM follow telemetry Echo results noted trend of troponins noted (3) Acute respiratory failure with hypoxia and hypercapnia: Code(s): J96.01 - Acute respiratory failure with hypoxia; J96.02 - Acute respiratory failure with hypercapnia Status: Acute Assessment and Plan: multifactorial etiology: cardiac arrest aspiration hypoxia intubated and on ventilator support CT of chest and CXR with suspected aspiration pneumonia and mild edema ventilator weaning as tolerated (4) Aspiration pneumonia: Code(s): J69.0 - Pneumonitis due to inhalation of food and vomit Status: Acute Assessment and Plan: as suggested by imaging to date blood/sputum culture results noted on antibiotic therapy continue ventilator support (5) Anemia: Code(s): D64.9 - Anemia, unspecified Status: Chronic Assessment and Plan: related to ESRD along with acute illness Epogen with HD follow trend of H/H (6) Esophageal obstruction due to food impaction: Code(s): T18.128A - Food in esophagus causing other injury, initial encounter; W44.F3XA - Food entering into or through a natural orifice, initial encounter Status: Acute Assessment and Plan: OG tube was attempted but unsuccessful as it was met with resistance once it was pulled out there was food particles at the end of the tube known history of recent esophageal tear with surgical repair GI following admission CT with focal radiopacities, no larger than 7 mm, projecting over the upper thoracic esophagus, may represent swallowed foreign bodies. s/p EGD (on 02/06) with findings noted (7) Anoxic brain injury: Code(s): G93.1 - Anoxic brain damage, not elsewhere classified Status: Acute Assessment and Plan: suspected based on evidence to date s/p TTM myoclonic jerks noted - on Keppra Neurology following EEG results reviewed off sedation (but remains unresponsive) further imaging needed(?) (8) Type 1 diabetes mellitus: Qualifiers: Diabetes mellitus complication status: with kidney complications Diabetes mellitus complication detail: with chronic kidney disease Chronic kidney disease stage: on chronic dialysis Qualified Code(s): E10.22 - Type 1 diabetes mellitus with diabetic chronic kidney disease; N18.6 - End stage renal disease; Z99.2 - Dependence on renal dialysis Code(s): E10.9 - Type 1 diabetes mellitus without complications Status: Chronic Assessment and Plan: follow accu-cheks glycemic control per intensivisit/hospitalist Family meeting today to discuss long-term goals of therapy given lack of neurological improvement in the last 24 - 48 hours. Will continue to follow. Subjective Date/time seen: 02/09/24 10:40 Interval history: Follow-up for end stage renal disease on hemodialysis. Tolerated dialysis treatment yesterday afternoon and tolerating dialysis treatment at the time of my visit (seen on HD at 10:30AM); remains unresponsive despite being off sedation; hemodynamically stable off vasopressor therapy; EEG results noted; remains intubated and on mechanical ventilation; no other issues/events overnight or earlier this morning. Exam Narrative: General: middle aged female intubated and on
--- NOTE | 2024-02-09 11:19 | PCFNICU ---
ICU Rounding Note: Pt current nutrition is Nepro at 40 ml/hr. Last recorded weight is 98.9 kg, up from 92 kg on admit. Bowel Motility: +BM reported 02/08 Labs Reviewed:Glu 283, Cr 2.0,GFR 26, Hct 30.0,Hgb 9.4 Meds Noted:Heparin, Keppra, Flagyl Skin: WNL Additional Notes: Patient remains on mechanical vent. Tube feedings are being tolerated of Nepro at 40 ml/hr. Flush 30 ml q 4 hours. Dialysis planned for today. Patient is DNR. Front Worker is in discussions with family in regards to plan of care. Monitoring tube feeding tolerance, meds, vitals, weights, labs, plan of care Follow daily in ICU rounds, reassess Tuesdays and Fridays .
[2024-02-09 12:07] LABS: Glucose Point of Care 197 mg/dl (65-105)
[2024-02-09 15:47] LABS: Glucose Point of Care 281 mg/dl (65-105)
--- NOTE | 2024-02-09 16:34 | WPDPN ---
Progress Note: A&P Assessment and Plan (1) Cardiac arrest: Code(s): I46.9 - Cardiac arrest, cause unspecified Status: Acute (2) Acute respiratory failure with hypoxia and hypercapnia: Code(s): J96.01 - Acute respiratory failure with hypoxia; J96.02 - Acute respiratory failure with hypercapnia Status: Acute (3) Esophageal obstruction due to food impaction: Code(s): T18.128A - Food in esophagus causing other injury, initial encounter; W44.F3XA - Food entering into or through a natural orifice, initial encounter Status: Acute (4) End-stage renal disease on hemodialysis: Code(s): N18.6 - End stage renal disease; Z99.2 - Dependence on renal dialysis Status: Chronic (5) Elevated troponin: Code(s): R79.89 - Other specified abnormal findings of blood chemistry Status: Acute (6) Type 1 diabetes mellitus: Qualifiers: Diabetes mellitus complication status: with kidney complications Diabetes mellitus complication detail: with chronic kidney disease Chronic kidney disease stage: on chronic dialysis Qualified Code(s): E10.22 - Type 1 diabetes mellitus with diabetic chronic kidney disease; N18.6 - End stage renal disease; Z99.2 - Dependence on renal dialysis Code(s): E10.9 - Type 1 diabetes mellitus without complications Status: Chronic Plan Interval history 02/06/2024: patient with respiratory arrest resulting in systolic cardiac arrest out side the hospital, concerning for anoxic brain injury now on ventilator seen by senior accountant cpa, junior marketing associate, and viscera washer, prognosis is guarded, will continue to monitor and further recommendation to follow. Interval history 02/07/2024: patient with respiratory arrest resulting in systolic cardiac arrest out side the hospital, concerning for anoxic brain injury now on ventilator, patient was placed on hypothermia protocol and today patient is off the protocol as patient is rewarmed, seen by senior accountant cpa, junior marketing associate, and viscera washer, prognosis is guarded, will continue to monitor and further recommendation to follow. Interval history 02/08/2024: patient with respiratory arrest resulting in systolic cardiac arrest out side the hospital, concerning for anoxic brain injury now on ventilator, patient was placed on hypothermia protocol and on 02/06 patient eas taken off the protocol as patient is rewarmed, patient has been off sedation for several hours however patient is not responsice, had EEG which is abnormal, patient will be seen by neurologist, seen by senior accountant cpa, junior marketing associate, and viscera washer, prognosis is guarded, will continue to monitor and further recommendation to follow. patient son is present in the room. Interval history 02/09/2024: patient with respiratory arrest resulting in systolic cardiac arrest out side the hospital, concerning for anoxic brain injury now on ventilator, patient was placed on hypothermia protocol and on 02/06 patient was taken off the protocol as patient was rewarmed, patient has been off sedation for more than 24 however patient is not responsive, had EEG which is abnormal, today patient family has decided to withdraw care and place patient under hospice care. plan is withdraw care tomorrow and take the patient off the ventilator. Subjective Date/time seen: 02/09/24 16:34 Interval history: Interval history 02/09/2024: patient with respiratory arrest resulting in systolic cardiac arrest out side the hospital, concerning for anoxic brain injury now on ventilator, patient was placed on hypothermia protocol and on 02/06 patient was taken off the protocol as patient was rewarmed, patient has been off sedation for more than 24 however patient is not responsive, had EEG which is abnormal, today patient family has decided to withdraw care and place patient under hospice care. plan is withdraw care tomorrow and take the patient off the ventilator. Review of Systems Review of Systems: LUIS FERNANDO coates
[2024-02-09] MEDS: ACETAMINOPHEN ELIXIR 325 MG/10.15 ML UDC 650 MG PO ×2 (17:34→21:06)
[2024-02-09 21:11] LABS: Glucose Point of Care 259 mg/dl (65-105)
[2024-02-10] VITALS (8 sets, daily range): BP systolic 135–153; BP diastolic 45–56; PULSE 66–77; RESP 18; TEMP 36.6–37.7; O2SAT 95–98
[2024-02-10] MEDS: INSULIN ASPART (*BKC) 100 UNITS/ML SUB-Q ×2 (01:32→06:20)
[2024-02-10 01:36] LABS: Glucose Point of Care 385 mg/dl (65-105)
[2024-02-10 06:17] LABS: Basophils Absolute Auto 0.1 K/mm3 (0.0-0.1); Basophils Percent Auto 1.2 % (0.2-1.2); Eosinophils Absolute Auto 0.2 K/mm3 (0-0.3); Eosinophils Percent Auto 2.2 % (0-4.4); Hematocrit 31.2 % (37.0-47.0); Hemoglobin 9.9 g/dL (12.0-15.0); Immature Granulocyte Absolute 0.31 K/mm3 (0.00-0.031); Immature Granulocyte Percent A 4.1 % (0-0.5); Lymphocytes Absolute Auto 0.68 K/mm3 (0.9-3.2); Lymphocytes Percent Auto 8.9 % (18.3-44.2); Mean Corpuscular HGB Conc 31.7 g/dl (32-36); Mean Corpuscular Hemoglobin 30.3 pg (26-34); Mean Corpuscular Volume 95.4 fl (80-100); Mean Platelet Volume 10.9 fl (7.4-10.4); Monocytes Absolute Auto 0.9 K/mm3 (0.1-0.6); Monocytes Percent Auto 11.3 % (2.6-8.5); Neutrophils Absolute Auto 5.5 K/mm3 (1.3-6.7); Neutrophils Percent Auto 72.3 % (45.5-73.1); Platelet Count Result 150 k/mm3 (150-375); Red Blood Count 3.27 M/mm3 (4.2-5.4); Red Cell Distribution Width 17.2 % (11.5-14.5); White Blood Count 7.6 K/mm3 (4.5-10.0)
[2024-02-10] MEDS: metroNIDAZOLE 500 MG/ISO 100ML 500 MG/100 ML BAG 100 MG IVPB (06:19)
[2024-02-10 06:33] LABS: Alanine Aminotransferase 12 U/L (6-35); Albumin Level 3.2 g/dL (3.5-5.1); Alkaline Phosphatase 372 U/L (38-126); Anion Gap 11 mmol/L (4-12); Aspartate Amino Transferase 19 U/L (14-36); Bilirubin,Total 0.9 mg/dL (0.2-1.3); Blood Urea Nitrogen 23 mg/dL (7-17); Calcium 9.5 mg/dL (8.4-10.2); Carbon Dioxide 29 mmol/L (22-30); Chloride 99 mmol/L (98-107); Estimated CRCL calculation 35 ml/min; Estimated Glomerular Filt Rate 29; Glucose 408 mg/dL (65-110); Phosphorus 1.7 mg/dL (2.5-4.5); Potassium 3.3 mmol/L (3.4-5.0); Sodium 139 mmol/L (137-145)
[2024-02-10 06:38] LABS: Glucose Point of Care 399 mg/dl (65-105)
[2024-02-10] MEDS: CENTRAL LINE FLUSH 10 ML IV PUSH (06:38)
[2024-02-10] MEDS: LEVOTHYROXINE SODIUM 112 MCG TABLET FEED TUBE (06:39)
[2024-02-10] MEDS: LORazepam INJ (*CRX) 2 MG/ML VIAL IV PUSH (08:33)
[2024-02-10] MEDS: MORPHINE SULFATE INJ (*CRX) 10 MG/ML AMP 5 MG IV PUSH (08:33)
--- NOTE | 2024-02-10 08:57 | WPDINTPN ---
Progress Note: A&P Assessment and Plan (1) Cardiac arrest: Code(s): I46.9 - Cardiac arrest, cause unspecified Status: Acute Assessment and Plan: Patient presented with cardiac arrest with successful ROSC with 1 round of epinephrine, 1 amp of bicarb and calcium gluconate with CPR. Most likely cause of cardiac arrest was respiratory event/hypoxia/aspiration. -troponins increased but have plateaued, 0.021, 1.390, 2.620, 2.570. -cardiology following -patient is not have any known cardiac history except for recent endocarditis -no cardiac arrhythmias overnight -echo done and report below CT brain on admission : Focal pontine and midbrain hypodensities, most likely representing artifact from beam hardening although focal infarct could appear similarly. Consider MRI of the brain for further evaluation. CT chest abdomen and pelvis: Endotracheal tube terminates 1.6 cm above the nik, consider slight retraction. Right IJ/subclavian central line, in good position.Focal radiopacities, no larger than 7 mm, projecting over the upper thoracic esophagus, may represent swallowed foreign bodies. Aspiration pneumonitis, possible left lower lobe aspiration pneumonia, overlying changes of mild interstitial edema.Mild gallbladder hydrops with pericholecystic fluid, may be secondary to fasting and associated mild ascites, or obstruction and gallbladder inflammation, correlate with biliary labs. Moderate body wall edema. Echo Summary 1. Left ventricular chamber dimension is normal. 2. Left ventricular systolic function is normal, estimated at 65-70%. 3. Left ventricular septal wall motion is abnormal with septal motion related to bundle branch block. 4. Right ventricular chamber dimension is mildly enlarged. 5. Right ventricular systolic function is normal. 6. Left atrial chamber dimension is mildly enlarged. 7. Right atrial chamber dimension is mildly enlarged. 8. There is moderate aortic valve calcification. 9. There is mild aortic valve regurgitation. 10. The mitral valve has thickened leaflets. 11. The mitral valve annulus is severely calcified. 12. There is mild mitral valve regurgitation. 13. There is mild tricuspid valve regurgitation. 14. There is mild pulmonic regurgitation. 15. Dilated inferior vena cava with no collapse upon inspiration consistent with elevated right atrial pressure, 15 mmHg. 16. Left pleural effusion present. (2) Anoxic brain injury: Code(s): G93.1 - Anoxic brain damage, not elsewhere classified Status: Acute Assessment and Plan: Patient appears to have sustained anoxic brain injury secondary to cardiac arrest. Patient exhibiting myoclonic jerking with painful stimulus. Patient does not have any other response. Neuro exam as above -patient status post target temperature management, was rewarmed and reached her normal body temperature -continue Keppra at this time -patient evaluated by Neurology -EEG 02/07 Abnormal record due to the presence of myoclonic status. Clinical correlation recommended -repeat head CT 02/07 was unremarkable -both Versed and fentanyl have been discontinued>48 hours. Patient was dialyzed x2 since then -no significant improvement in neurological status -continue monitoring. Prognosis appears poor (3) Acute respiratory failure with hypoxia and hypercapnia: Code(s): J96.01 - Acute respiratory failure with hypoxia; J96.02 - Acute respiratory failure with hypercapnia Status: Acute Assessment and Plan: Acute respiratory failure likely related to cardiac arrest, stabilization of the airway. Most likely it was a respiratory event with aspiration pneumonia -currently on CMV mode of ventilation, peep of 5, 30% FiO2. Decrease respiratory rate to 18 -chest x-ray and ABGs reviewed -chest x-ray and CT chest showing pneumonia likely related to aspiration -currently on cefepime, metronidazole for aspiration mode. Vancomycin was discontinue
--- NOTE | 2024-02-10 10:13 | PC.NURSE ---
Patient at 0945. Family at bedside.
--- NOTE | 2024-02-10 13:34 | WPDPN ---
Progress Note: A&P Assessment and Plan (1) Cardiac arrest: Code(s): I46.9 - Cardiac arrest, cause unspecified Status: Acute (2) Acute respiratory failure with hypoxia and hypercapnia: Code(s): J96.01 - Acute respiratory failure with hypoxia; J96.02 - Acute respiratory failure with hypercapnia Status: Acute (3) Esophageal obstruction due to food impaction: Code(s): T18.128A - Food in esophagus causing other injury, initial encounter; [id number].F3XA - Food entering into or through a natural orifice, initial encounter Status: Acute (4) End-stage renal disease on hemodialysis: Code(s): N18.6 - End stage renal disease; Z99.2 - Dependence on renal dialysis Status: Chronic (5) Elevated troponin: Code(s): R79.89 - Other specified abnormal findings of blood chemistry Status: Acute (6) Type 1 diabetes mellitus: Qualifiers: Diabetes mellitus complication status: with kidney complications Diabetes mellitus complication detail: with chronic kidney disease Chronic kidney disease stage: on chronic dialysis Qualified Code(s): E10.22 - Type 1 diabetes mellitus with diabetic chronic kidney disease; N18.6 - End stage renal disease; Z99.2 - Dependence on renal dialysis Code(s): E10.9 - Type 1 diabetes mellitus without complications Status: Chronic Plan Interval history 02/06/2024: patient with respiratory arrest resulting in systolic cardiac arrest out side the hospital, concerning for anoxic brain injury now on ventilator seen by design manager, medical intern, and scaleman, prognosis is guarded, will continue to monitor and further recommendation to follow. Interval history 02/07/2024: patient with respiratory arrest resulting in systolic cardiac arrest out side the hospital, concerning for anoxic brain injury now on ventilator, patient was placed on hypothermia protocol and today patient is off the protocol as patient is rewarmed, seen by design manager, medical intern, and scaleman, prognosis is guarded, will continue to monitor and further recommendation to follow. Interval history 02/08/2024: patient with respiratory arrest resulting in systolic cardiac arrest out side the hospital, concerning for anoxic brain injury now on ventilator, patient was placed on hypothermia protocol and on 02/06 patient eas taken off the protocol as patient is rewarmed, patient has been off sedation for several hours however patient is not responsice, had EEG which is abnormal, patient will be seen by neurologist, seen by design manager, medical intern, and scaleman, prognosis is guarded, will continue to monitor and further recommendation to follow. patient son is present in the room. Interval history 02/09/2024: patient with respiratory arrest resulting in systolic cardiac arrest out side the hospital, concerning for anoxic brain injury now on ventilator, patient was placed on hypothermia protocol and on 02/06 patient was taken off the protocol as patient was rewarmed, patient has been off sedation for more than 24 however patient is not responsive, had EEG which is abnormal, today patient family has decided to withdraw care and place patient under hospice care. plan is withdraw care tomorrow and take the patient off the ventilator. Interval history 02/10/2024: Today patient family has gathered around the patient as is a family has decided to withdraw the care and patient be extubated. Patient be placed under hospice care. Subjective Date/time seen: 02/10/24 13:34 Interval history: Interval history 02/09/2024: patient with respiratory arrest resulting in systolic cardiac arrest out side the hospital, concerning for anoxic brain injury now on ventilator, patient was placed on hypothermia protocol and on 02/06 patient was taken off the protocol as patient was rewarmed, patient has been off sedation for more than 24 however patient is not responsive, had EEG which is abnormal, today patient naun
--- NOTE | 2024-02-10 13:39 | P.DN_ITS ---
Discharge Summary Date and Time Date of : 02/10/24 Time of : 09:45 Provider Pronounced By: 2 RNs Name of First RN That Pronounced: shawnee leos rn Name of Second RN That Pronounced: radha xavier rn Probable Cause of Probable Cause of : cardiac arrest Summary Hospital Course: Interval history 02/06/2024: patient with respiratory arrest resulting in systolic cardiac arrest out side the hospital, concerning for anoxic brain injury now on ventilator seen by bass mechanism maker, case reviewer, and assistant director of nursing, prognosis is guarded, will continue to monitor and further recommendation to follow. Interval history 02/07/2024: patient with respiratory arrest resulting in systolic cardiac arrest out side the hospital, concerning for anoxic brain injury now on ventilator, patient was placed on hypothermia protocol and today patient is off the protocol as patient is rewarmed, seen by bass mechanism maker, case reviewer, and assistant director of nursing, prognosis is guarded, will continue to monitor and further recommendation to follow. Interval history 02/08/2024: patient with respiratory arrest resulting in systolic cardiac arrest out side the hospital, concerning for anoxic brain injury now on ventilator, patient was placed on hypothermia protocol and on 02/06 patient eas taken off the protocol as patient is rewarmed, patient has been off sedation for several hours however patient is not responsice, had EEG which is abnormal, patient will be seen by neurologist, seen by bass mechanism maker, case reviewer, and assistant director of nursing, prognosis is guarded, will continue to monitor and further recommendation to follow. patient son is present in the room. Interval history 02/09/2024: patient with respiratory arrest resulting in systolic cardiac arrest out side the hospital, concerning for anoxic brain injury now on ventilator, patient was placed on hypothermia protocol and on 02/06 patient was taken off the protocol as patient was rewarmed, patient has been off sedation for more than 24 however patient is not responsive, had EEG which is abnormal, today patient family has decided to withdraw care and place patient under hospice care. plan is withdraw care tomorrow and take the patient off the ventilator. Interval history 02/10/2024: Today patient family has gathered around the patient as is a family has decided to withdraw the care and patient be extubated. Patient be placed under hospice care. Additional Data Confirmation of as documented by pronouncing clinician: Pupillary Reflex, Palpable Pulses, Response to Stimuli and Heart Tones Name of Provider Notified: dr. pepper, dr. padgett Time Provider Notified: 09:45 Provider Requests Autopsy: No Family Requests Autopsy: No Cath Lab Nurse Notified: Yes Date [facility] Notified of : 02/10/24 Time [facility] Notified of : 09:50
== END 2024-02-10 09:45 | disposition expired | DRG 207 ==
LOC: ANHED 20:29 → ANHICU 22:49
PROVIDERS: Internal Medicine; Internal Medicine Gastroenterology; Internal Medicine Nephrology; Admitting Provider Internal Medicine; Emergency Provider Emergency Medicine; Visit Provider Family Medicine
PROC: 0DJ08ZZ Inspection of Upper Intestinal Tract, Via Natural or Artificial Opening Endoscopic (ICD-10-PCS; CPT 43235; principal; 2024-02-07 11:30)
DX: J96.01 Acute respiratory failure with hypoxia (principal); J69.0 Pneumonitis due to inhalation of food and vomit; N18.6 End stage renal disease; G93.1 Anoxic brain damage, not elsewhere classified; T18.128A Food in esophagus causing other injury, initial encounter; I46.9 Cardiac arrest, cause unspecified; I35.1 Nonrheumatic aortic (valve) insufficiency; Z99.2 Dependence on renal dialysis; E10.22 Type 1 diabetes mellitus with diabetic chronic kidney disease; E03.9 Hypothyroidism, unspecified; K21.9 Gastro-esophageal reflux disease without esophagitis; E10.319 Type 1 diabetes mellitus with unspecified diabetic retinopathy without macular edema; E87.6 Hypokalemia; K20.90 Esophagitis, unspecified without bleeding; E10.40 Type 1 diabetes mellitus with diabetic neuropathy, unspecified; K22.5 Diverticulum of esophagus, acquired; K29.70 Gastritis, unspecified, without bleeding; G25.3 Myoclonus; R79.89 Other specified abnormal findings of blood chemistry; Z98.1 Arthrodesis status; Z86.73 Personal history of transient ischemic attack (TIA), and cerebral infarction without residual deficits; Z79.4 Long term (current) use of insulin; Z93.1 Gastrostomy status; Z51.5 Encounter for palliative care
CPT/HCPCS: 31500; 36415; 36600; 70450; 71045; 71250; 74176; 80048; 80053; 80202; 82375; 82550; 82805; 82948; 83036; 83050; 83605; 83735; 84100; 84484; 85025; 85027; 85055; 85610; 85730; 86704; 86706; 87040; 87070; 87205; 87340; 87641; 92950; 93005; 94002; 94003; 95816; 99291; A9270; C8929; G0257; J0456; J0461; J0692; J1644; J1815; J1836; J1953; J2060; J2250; J2270; J2470; J3010; J3370; J3480; J7030; J7050; P9047; Q5105; Q9957